=== PATIENT | male | born 1945 | race Caucasian/White ===

== ENCOUNTER 2025-02-04 11:48 | Inpatient (IN) | payer MEDICARE, OTHER, SELFPAY ==
[2025-02-04] VITALS (10 sets, daily range): BP systolic 106–146; BP diastolic 66–95
--- NOTE | 2025-02-04 13:40 | HPS.HSE ---
Addendum entered and electronically signed by Hugo Bliss MD 02/05/25 12:52:
Correction -no prior history of peripheral arterial bypass.
Original Note:
Family Physician
-
Family Physician: Ovidio Talbert
Chief Complaint
-
Chest pain
History of Present Illness
79-year-old male extensive past medical history who is presenting as transfer from [facility]. Patient presented to [facility] with complaint of chest pain. Stated was left-sided substernal. Resolves with rest. Chest pain was
worse with exertion. Chest pain radiated to his jaw and left arm. Pain lasted for approximately 30 to 60 minutes. States of significant pain in the past which patient did not seek attention. Patient proBNP was found to be elevated at [facility].
Patient had a stress test done at [facility] which showed inferior wall ischemia with decreased ejection fraction. Echo with moderate aortic stenosis, EF of 40 to 45%, mild diffuse hypokinesis mild mitral regurgitation. Underwent cardiac
catheterization which showed significant ostial right coronary artery stenosis and mildly decreased systolic left ventricular function and moderate aortic stenosis. Postcardiac catheterization plan was to transfer to patient with tertiary care.
Medical History
Past Medical History
Past Medical History: Reports Other
Additional Past Medical History:
Non-Hodgkin lymphoma
COPD
Tobacco abuse
Coronary artery disease
Paroxysmal atrial fibrillation
Chronic anticoagulation with Coumadin
Peripheral vascular disease
Severe anxiety
Hypercoagulable state
CKD baseline from 1.14-1.27
Aortic stenosis
Cardiomyopathy
Hyperlipidemia
Primary hypertension
Past Surgical History: Reports Other
Additional Past Surgical History:
Status post peripheral artery bypass
History of orthopedic surgery
History of splenectomy
History of excision of dermoid cyst
Social History
Tobacco: Smoker (Smoking for prolonged period of time)
Alcohol: None
Personal:
Living: With Family
Family History
Family History: Not pertinent
Allergies / Home Medications
Allergies reflects when Allergies were last updated in My[employer].
Home Medications with original date entered in My[employer]
Allergy/Medication List:
Allergies
Allergy/AdvReac Type Severity Reaction Status Date / Time
erythromycin base Allergy Mild upset Verified 02/04/25 13:14
stomach
iodine Allergy Unknown Unknown Verified 02/04/25 13:14
moxifloxacin Allergy Unknown Unknown Verified 02/04/25 13:14
shellfish derived Allergy Unknown Unknown Verified 02/04/25 13:14
Fish Containing Products Allergy nausea and Verified 02/04/25 13:14
vomiting
Home Medications
albuterol sulfate 90 mcg/actuation aerosol inhaler (Ventolin HFA) 2 puff inhalation QID 02/04/25
famotidine 20 mg tablet 20 mg PO DAILY 02/04/25
lorazepam 1 mg tablet 1 mg PO TID PRN anxiety 02/04/25
lubiprostone 8 mcg capsule 8 mcg PO BID 02/04/25
nitroglycerin 0.4 mg sublingual tablet (Nitrostat) 0.4 mg sublingual Q5M PRN cp 02/04/25
warfarin 5 mg tablet 5 mg PO DAILY 02/04/25
Review of Systems
-
History Source: Patient and Family
A 12 point ROS was completed and negative except as noted: Yes
Physical Exam
Vital Signs
Vital Signs
Temp Pulse Resp BP Pulse Ox
98.7 F 67 20 146/85 98
02/04/25 12:02 02/04/25 12:15 02/04/25 12:02 02/04/25 12:03 02/04/25 12:02
Physical Exam
General: No Apparent Distress and Appears Chronically Ill
HEENT: NormoCephalic, Moist mucous membranes and Atraumatic
Respiratory: Clear
Cardiac: S1/S2, Regular Rhythm and Murmur; No Rub
GI: Soft, Non Tender, Non Distended and Normal Bowel Sounds; No Organomegaly
Rectal: Deferred by Provider
Musculoskeletal: No Clubbing, No Cyanosis and No Edema
Skin: No Rash
Neuro: Awake, Alert, Oriented, AO x 3, No Motor Deficits and Nonfocal/grossly intact
Psych: Calm
Data Reviewed
-
Old Records: Requested and Reviewed
Impression/Plan
-
#Unstable angina
#CAD
Status post cardiac catheterization at [facility] with significant ostial right coronary artery stenosis
Currently chest pain-free
Check creatinine as with history of CKD and status post cardiac cath
If with chest pain trial of nitroglycerin and morphine if needed
Patient does not seem to be on beta-danielito
N.p.o. till cardiology evaluation for catheterization
Cardiology consulted
#Chronic HFrEF with valvular disease
Patient seems not to be on diuretics at home
Not on NOEMI inhibitor likely secondary to CKD
Not on goal-directed medical therapy
Postcardiac catheterization consider starting GDMT
#CKD
Cr baseline from 1.14-1.27
Labs pending
#Atrial fibrillation likely paroxysmal
#Chronic coagulopathy with Coumadin
Not on AV ermelinda danielito
Monitor on telemetry
INR subtherapeutic
Consider increased dose of Coumadin postcardiac catheterization versus heparin drip
#Severe anxiety
Continue with Ativan
#Hyperlipidemia
Check lipid panel in the morning
#Chronic constipation
Continue with lubiprostone
#COPD
#Tobacco abuse
Refused nicotine patch
Continue with bronchodilators
No active wheezing
Check a chest x-ray
#Non-Hodgkin lymphoma
DVT prophylaxis SCDs
Full code
Discussed with spouse at bedside in detail
I spent a total of 85 minutes with the patient or on the floor. More than 50% of this time involved counseling and coordination of care.
[2025-02-04 13:54] LABS: INR 1.06; PT 14.1 Sec (11.4-14.6)
[2025-02-04 14:18] LABS: ALT (SGPT) 28 U/L (0-50); AST (SGOT) 33 U/L (17-59); Albumin 4.3 g/dl (3.5-5.0); Alkaline Phosphatase 111 U/L (38-126); Blood Urea Nitrogen 44 mg/dl (9-20); Calcium 10.1 mg/dl (8.4-10.2); Carbon Dioxide 30 mmol/L (22-30); Chloride 105 mmol/L (98-107); Glucose 93 mg/dl (70-99); Magnesium 2.4 mg/dl (1.6-2.3); Sodium 140 mmol/L (135-145); Total Protein 6.5 g/dl (6.3-8.2); eGFR 51.13
[2025-02-04 14:31] LABS: Hematocrit 43.9 % (39.0-52.0); Mean Corp Hgb Conc. 34.2 g/dL (33.0-37.0); Mean Corpuscular Hgb 31.9 pg (27.0-31.0); Mean Corpuscular Volume 93.4 fL (80.0-94.0); Mean Platelet Volume 11.5 fL (7.4-10.4); Platelet Count 223 10^3/uL (130-400); Red Cell Dist. Width 15.5 % (11.5-14.5); White Blood Cell Count 10.5 10^3/uL (4.8-10.8)
--- NOTE | 2025-02-04 14:50 | PTCARENOTE ---
Rec'd pt from [facility]. Tele- afib. HR 60s. Pt has no complaints of CP/discomfort/sob at this time. Oriented pt to room. Plan of care reviewed w/ pt and verbalizes understanding. Pt aware that he is NPO for cath today. Currently in bed; call jose w/in
reach.
[2025-02-04 15:14] LABS: % Basophils 0.1 % (0-2); % Eosinophils 0.2 % (0-6); % Immature Granulocytes 0.3 % (0-0.5); % Lymphocytes 17.6 % (20.5-51.1); % Monocytes 7.2 % (1.7-9.3); % Neutrophils 74.6 % (42.2-75.2); Absolute Lymphocytes 1.9 10^3/uL (1.2-3.4); Absolute Monocytes 0.8 10^3/uL (0.1-0.6); Absolute Neutrophils 7.8 10^3/uL (1.4-6.5); Nucleated Red Blood Cells % 0 % (-)
[2025-02-04] MEDS: ProAIR HFA INHALER INH (15:25)
--- NOTE | 2025-02-04 15:31 | CON.CAR ---
Consultation
Consultation Request
Date/Time Consultation Requested: 02/04/2025; 13:36
Date/Time Consultation Performed: 02/04/2025; 15:30
Requesting Provider: Hugo Bliss M.D.
Performing Provider: Obed Yeung D.O.
Reason for Consultation: CAD and unstable angina, transfer for staged PCI.
Medical History
-
Chief Complaint: Transfer from [facility] for atherectomy/PCI of ostial RCA.
History of Present Illness:
79 y/o male with extensive past medical history that is most notable for non-Hodgkin's lymphoma, tobacco abuse with COPD, PAF on warfarin, PAD, HTN, HLD and CKD admitted to [facility] with unstable angina. Pharmacologic stress test at [facility] was notable for
inferior ischemia. Echo showed new cardiomyopathy, LVEF 40-45% with moderate aortic valve stenosis. The patient underwent cardiac catheterization which demonstrated critical, densely calcified ostial RCA stenosis. IVUS was attempted but would not
pass into the vessel. It was clear that the patient would need plaque modification as part of his treatment. The patient was transferred to [facility] for staged PCI with either coronary lithotripsy or orbital atherectomy. The patient is currently
chest pain free.
Past Medical History
Past Medical History: Arrhythmias (Paroxysmal atrial fibrillation on warfarin.), CAD, Cancer (Non-Hodgkin's Lymphoma), CHF (LVEF 40-45%.), COPD, HTN, Hypercholesterolemia, Renal Failure (Baseline creatinine 1.1-1.3.) and Other (Peripheral arterial
disease )
Social History
Tobacco: Smoker
Alcohol: None
Drug: None
Personal:
Living: With Family
Employment: Retired
Family History
Family History: Reviewed & Not Pertinent
Allergies / Home Medications
Allergy/AdvReac Type Severity Reaction Status Date / Time
erythromycin base Allergy Mild upset Verified 02/04/25 13:14
stomach
iodine Allergy Unknown Unknown Verified 02/04/25 13:14
moxifloxacin Allergy Unknown Unknown Verified 02/04/25 13:14
shellfish derived Allergy Unknown Unknown Verified 02/04/25 13:14
Fish Containing Products Allergy nausea and Verified 02/04/25 13:14
vomiting
�Medication �Instructions �Recorded �Confirmed �Type
albuterol sulfate 90 mcg/actuation 2 puff inhalation QID 02/04/25 02/04/25 History
aerosol inhaler (Ventolin HFA)
famotidine 20 mg tablet 20 mg PO DAILY 02/04/25 02/04/25 History
lorazepam 1 mg tablet 1 mg PO TID PRN anxiety 02/04/25 02/04/25 History
lubiprostone 8 mcg capsule 8 mcg PO BID 02/04/25 02/04/25 History
nitroglycerin 0.4 mg sublingual 0.4 mg sublingual Q5M PRN cp 02/04/25 02/04/25 History
tablet (Nitrostat)
warfarin 5 mg tablet 5 mg PO DAILY 02/04/25 02/04/25 History
Review of Systems
-
History Source: Patient and Family
All other systems: Negative unless noted
Constitutional: No Symptoms
EENT: No Symptoms
Respiratory: No Symptoms
Cardiac: Chest Pain
Abdomen/GI: No Symptoms
: No Symptoms
Musculoskeletal: No Symptoms
Skin: No Symptoms
Physical Exam
Vital Signs
Temp Pulse Resp BP Pulse Ox
37.1 C 67 20 146/85 98
02/04/25 12:02 02/04/25 12:15 02/04/25 12:02 02/04/25 12:03 02/04/25 12:02
Lab Results
02/04/25 13:35
02/04/25 13:35
Physical Exam
General: Well Developed, No Apparent Distress and Poor Appetite
HEENT: Normocephalic, Anicteric and Moist Mucous Membranes
Respiratory: Clear and Non Labored Respirations
Cardiac: S1/S2 and Regular Rhythm
Breast: Deferred by me
GI: Soft, Non Tender, Non Distended and Normal Bowel Sounds
Rectal: Deferred by Provider
Musculoskeletal: No Clubbing, No Cyanosis and No Edema
Skin: Warm
Neuro: AO x 3
Hematologic/Lymphatic: No Lymphadenopathy
Impression / Plan
-
Impression/Plan: 79 y/o male with extensive past medical history admitted to [facility] with unstable angina, found to have critical, densely calcified ostial RCA disease, transferred for plaque modification with CTS backup.
#CAD/Unstable angina
-Acute.
-Films reviewed. Plan for coronary lithotripsy vs. CSI and PCI of the ostial RCA.
-CT surgery informed.
-Plan for anti-thrombotic therapy will be clopidogrel + warfarin.
#Moderate
-Chronic, stable.
#Ischemic cardiomyopathy
-New diagnosis.
-Monitor response to PCI.
-GDMT if the patient is agreeable.
#HLD
-Chronic.
-Check fasting lipid profile.
-He will need high dose, high potency statin.
-Goal LDL < 55.
#Tobacco abuse
-Chronic, long standing.
-Cessation strongly recommended.
Data Reviewed
-
EKG: Tracing Personally Visualized and interpreted and Report Reviewed by me
Medical Tests (Nuc Med, Echo etc): Image Personally Visualized and interpreted, Report Reviewed by me and Discussed with Physician
Labs: Labs Reviewed by me and Discussed with Physician
[2025-02-04 15:59] LABS: NT-proBNP 5680 pg/ml
[2025-02-04 16:54] LABS: ACT-LR - POC 306 Seconds (116-155)
--- NOTE | 2025-02-04 17:15 | ITS.CL.ANGIO ---
[employer] - Angioplasty
Angioplasty
Procedure Report:
CARDIAC CATHETERIZATION REPORT
Date of Procedure: 02/04/2025
Referring: Trevon Worley M.D.
INDICATION: Staged PCI for unstable angina, densely calcified ostial RCA lesion requiring surgical backup.
PROCEDURE:
1. Placement of a temporary pacemaker.
2. Right sided coronary angiography.
3. CSI orbital atherectomy of the ostial/proximal RCA.
4. Successful PCI of the ostial/proximal RCA
A total of 76 minutes of procedural/moderate sedation was utilized. An independent biomedical equipment tech was present to assist with and help manage the patient's level of consciousness and physiologic status.
ACCESS:
1. 6 [place] left common femoral artery using a modified Seldinger technique with a micropuncture kit under ultrasound guidance.
2. 6 [place] left common femoral vein using a modified Seldinger technique with a micropuncture kit under ultrasound guidance.
CATHETERS:
1. 6 [place] AR-1 guiding catheter.
2. 6 [place] AL-1 guiding catheter.
3. 6 [place] transvenous pacemaker.
HEMODYNAMIC DATA
Weight (kg): 63.5
AO (s/d/x, mmHg): 142/62/90
LV (s/x mmHg): Not obtained.
LEFT VENTRICULOGRAPHY: Not performed.
CORONARY ANGIOGRAPHY
Dominance: Right.
Left Main: Not injected. Known to be a normal size, trifurcating vessel without coronary artery disease.
LAD: Not injected. Known to be a normal size vessel with luminal irregularities.
Ramus: Not injected. Known to be a medium size vessel supplying a significant portion of the anterolateral wall. There is no coronary artery disease.
Circumflex: Not injected. Known to be a normal size, nondominant vessel with a single obtuse marginal. There is no coronary artery disease.
RCA: Normal size, dominant vessel. There is a densely calcified, 90% lesion in the ostium of the vessel which extends into the proximal vessel.
INTERVENTION(S)
1. Successful placement of a temporary transvenous pacemaker in the right ventricle.
2. Successful CSI orbital atherectomy of the 90% ostial RCA lesion.
3. Successful PCI of the 90% ostial/proximal RCA lesion (Medtronic Avtar [place] 3.0 x 30 ROBE, postdilated with a 3.0 NC balloon) with reduction in stenosis to 0%, maintaining MONTSE-3 flow.
Narrative:
After access was obtained in the left common femoral artery and vein, a 6 [place] temporary pacemaker was advanced into the right ventricle. Thresholds were tested and the pacemaker was set to backup of 60 bpm at 20 mA of output. A 6 [place] AR-1
guiding catheter was advanced into the ascending aorta and seated in the right coronary cusp. Unfortunately, the AR-1 catheter did not have enough reach to engage the ostium of the right coronary artery without prolapsing into the left ventricle.
This catheter was withdrawn and a 6 [place] AL 1 guiding catheter was advanced and seated in the right coronary cusp. This catheter did have enough length to engage the right coronary artery. After appropriate engagement, a power turn Flex wire was
advanced through a quick cross microcatheter into the distal RCA. The quick cross was then advanced into the distal RCA and the power turn Flex wire was withdrawn. The Viper wire was advanced into the distal right coronary artery through the quick
cross microcatheter, which was subsequently removed.
The CSI orbital atherectomy device was prepped on the back table and flushed with Viper slide. The device was loaded onto the Viper wire and brought up to the level of the catheter. An out of body test was successful. The CSI device was advanced
over the Viper wire up to the level of the coronary artery. Once the crown was positioned in place, orbital atherectomy was performed in the standard fashion with slow smooth passes. Brief angiography was performed to rule out dissection and
perforation. The process was performed four times. The CSI device was withdrawn over the Viper wire.
The quick cross microcatheter was readvanced over the Viper wire which was then withdrawn. The power turn Flex wire was then readvanced into the distal RCA and the quick cross microcatheter was removed using a wire pinning technique.
The ostial/proximal RCA lesion was predilated with a 2.0 x 12 semi-compliant balloon to 12 roxana. The semicompliant balloon was withdrawn and a 2.5 x 15 noncompliant balloon was advanced. The ostial/proximal RCA was predilated to 14 roxana with good
balloon expansion throughout. The noncompliant balloon was removed. A BMW wire was advanced through the guide and seated in the right coronary cusp as a bumper wire to avoid full engagement of the right coronary ostium. A Medtronic Golva O[place]
3.0 x 30 drug-eluting stent was advanced. Meticulous care was taken while positioning the stent, ensuring that the entire lesion was covered by the stent including the ostium of the vessel with approximately 1 stent cell protruding into the aorta.
When we were satisfied with our position, the stent was deployed at 12 atmospheres. The stent balloon was removed. A 3.0 x 15 noncompliant balloon was advanced into the stent and the stent was postdilated to 14 atmospheres in the distal and mid
stent, and 16 roxana in the ostium of the stent into the aorta. The noncompliant balloon was removed and the guide catheter was able to sit much more comfortably in the ostium of the right coronary artery.
Angiography was performed in orthogonal views, confirming good stent expansion and an excellent angiographic result. The coronary wire was withdrawn and the guide was disengaged from the artery. The catheter was removed over a standard J-wire.
Closure Device: 6 [place] Angio-Seal in the left common femoral artery, failed on deployment; manual pressure for both the artery and vein.
Radiation (mGy): 219.78
DAP (cm2.Gy): 15.1140
Fluoroscopy time (minutes): 18.0
CONCLUSIONS
1. Right dominant circulation with a densely calcified, 90% lesion in the ostium of the RCA extending into the proximal vessel, status post successful CSI orbital atherectomy and PCI (Medtronic Avtar [place] 3.0 x 30 ROBE, postdilated with a 3.0 NC
balloon throughout) with reduction in stenosis to 0%, maintaining MONTSE-3 flow.
RECOMMENDATIONS:
1. Expectant management after cardiac catheterization via left common femoral approach.
2. Limited weight bearing for one week.
3. Antithrombotic therapy with aspirin and clopidogrel. Restart warfarin and maintain triple therapy until INR is therapeutic, at which time we will stop aspirin. Maintain clopidogrel for 12 months minimum.
4. OMT/GDMT as hemodynamics will tolerate.
5. Aggressive secondary prevention with high-dose, high potency statin. LDL goal <55.
6. Referral to cardiac rehab.
Copy to: Trevon Worley M.D., Ovidio Talbert M.D.
Obed Yeung DO, FACC, FACP
--- NOTE | 2025-02-04 18:16 | PTCARENOTE ---
Rec'd pt from dental laboratory technician. Pt c/o L foot cramping and coolness in extremity. Pt w/ absent L dorsalis pedis pulse. Dr. Yeung made aware.
--- NOTE | 2025-02-04 18:24 | PTCARENOTE ---
Rec'd pt from clinical laboratory aide. Pt c/o L foot cramping and coolness in extremity. Pt w/ absent L dorsalis pedis pulse. Dr. Yeung made aware and at bedside.
[2025-02-04] MEDS: LIPITOR 40 MG PO (18:25)
[2025-02-04] MEDS: COUMADIN 5 MG PO (21:12)
[2025-02-04] MEDS: ProAIR HFA INHALER 2 PUFF INH (21:13)
--- NOTE | 2025-02-04 23:22 | PTCARENOTE ---
Received pt @ change of shift. AAOx3. VSS-- A-Fib on monitor. Post cath NSS running. Right groin site from [facility]. Left femoral site clean, dry, and intact. No swelling, ecchymosis, or hematoma present @ this time. Denies L foot cramping.
Extremity still cool w/ absent L dorsalis pedis doppler pulse. Positive posterior tibial pulse with doppler. Bedrest complete @ 2119. Discussed plan of care for evening. Pt verbalizes understanding. Call garcia within reach.
[2025-02-05] VITALS (19 sets, daily range): BP systolic 86–161; BP diastolic 63–107; BMI 17.5
--- NOTE | 2025-02-05 04:01 | ECGCV ---
NOHELIA Desouza PA notified of ECG critical value identified by electronic interpretation on ECG completed on 02/05/25, at 0319.
--- NOTE | 2025-02-05 04:03 | PTCARENOTE ---
EKG critical value of a STEMI. Pt denies chest pain/discomfort. EKG ran again-- no STEMI second time. Informed NOHELIA Desouza PA and discussed-- does not feel first EKG of a STEMI was correct.
[2025-02-05 04:10] LABS: % Basophils 0.4 % (0-2); % Eosinophils 1.5 % (0-6); % Immature Granulocytes 0.5 % (0-0.5); % Lymphocytes 17.8 % (20.5-51.1); % Monocytes 8.8 % (1.7-9.3); Absolute Eosinophils 0.1 10^3/uL (0-0.7); Absolute Lymphocytes 1.5 10^3/uL (1.2-3.4); Absolute Monocytes 0.7 10^3/uL (0.1-0.6); Absolute Neutrophils 5.9 10^3/uL (1.4-6.5); Hematocrit 40.4 % (39.0-52.0); Hemoglobin 13.9 g/dL (13.0-18.0); Mean Corp Hgb Conc. 34.4 g/dL (33.0-37.0); Mean Corpuscular Hgb 31.8 pg (27.0-31.0); Mean Corpuscular Volume 92.4 fL (80.0-94.0); Mean Platelet Volume 11.7 fL (7.4-10.4); Nucleated Red Blood Cells % 0 % (-); Platelet Count 200 10^3/uL (130-400); Red Blood Cell Count 4.37 10^6/uL (4.70-6.10); Red Cell Dist. Width 15.5 % (11.5-14.5); White Blood Cell Count 8.2 10^3/uL (4.8-10.8)
[2025-02-05 04:20] LABS: PT 14.5 Sec (11.4-14.6)
[2025-02-05 04:36] LABS: Blood Urea Nitrogen 38 mg/dl (9-20); Calcium 9.2 mg/dl (8.4-10.2); Carbon Dioxide 23 mmol/L (22-30); Chloride 110 mmol/L (98-107); Glucose 80 mg/dl (70-99); HDL Cholesterol 45 mg/dl; LDL Cholesterol, Calculated 63 mg/dl; Potassium 3.9 mmol/L (3.5-5.1); Sodium 140 mmol/L (135-145); Total Cholesterol 123 mg/dl (50-199); Triglyceride 79 mg/dl (10-149); Very Low Density Lipoprotein 15 mg/dl (0-30); eGFR > 60.00
--- NOTE | 2025-02-05 06:57 | W.PN.CD ---
Today's Communication / Plan
-
Left arterial US.
Start metoprolol 12.5 mg daily.
Triple therapy until INR > 2, then discontinue ASA.
Continue atorvastatin 40 mg daily.
Discharge planning.
Impression / Plan
-
Impression/Plan: 79 y/o male with extensive past medical history admitted to [facility] with unstable angina, found to have critical, densely calcified ostial RCA disease, transferred for plaque modification with CTS backup.
#CAD/Unstable angina
-Acute.
-S/P successful CSI (orbital atherectomy x 4) and PCI of the ostial/proximal RCA (Medtronic Monclova [place] 3.0 x 30 ROBE, post dilated with a 3.0 NCB), 02/04/2025.
-Antithrombotic therapy with ASA/clopidogrel/warfarin until INR > 2, then d/c ASA.
-Left femoral closure with 6Fr Angioseal failed, followed by mild LE symptoms (known PAD, though none on angiography of the BIOSTATISTICS DIRECTOR at the time of cath). Nursing documents Dopplerable left PT pulse (DP never available).
-Check left femoral arterial US.
-Low threshold for vascular surgery involvement.
#Moderate
-Chronic, stable.
#Ischemic cardiomyopathy
-New diagnosis.
-Monitor response to PCI.
-Start metoprolol succinate 12.5 mg daily.
#PAD
-Chronic.
-Left AT pulse absent prior to procedure.
#HLD
-Chronic.
-Total cholesterol = 123, LDL = 63, HDL = 45, Triglycerides = 79.
-Goal LDL < 55.
-Started on atorvastatin 40 mg daily.
#Tobacco abuse
-Chronic, long standing.
-Cessation strongly recommended.
Subjective/Interval History:
CSI + PCI of the ostial RCA yesterday.
Left femoral angioseal failed yesterday. Manual pressure held.
Left foot cramping reported. Pulse present in the left groin. Nursing reports left PT present by Doppler. Cramping resolved.
DATA:
Cardiac Catheterization/PCI, 02/04/2025:
CONCLUSIONS
1. Right dominant circulation with a densely calcified, 90% lesion in the ostium of the RCA extending into the proximal vessel, status post successful CSI orbital atherectomy and PCI (Medtronic Avtar [place] 3.0 x 30 ROBE, postdilated with a 3.0 NC
balloon throughout) with reduction in stenosis to 0%, maintaining MONTSE-3 flow.
Physical Exam
Vital Signs/Labs
Vital Signs
Temp Pulse Resp BP Pulse Ox
36.4 C 64 18 117/64 98
02/05/25 03:26 02/05/25 03:45 02/05/25 03:26 02/05/25 03:26 02/05/25 03:26
02/05/25 03:38
02/05/25 03:38
PT 14.5 Sec (11.4-14.6) 02/05/25 03:38
INR 1.10 02/05/25 03:38
APTT 25.0 Sec (23.4-35.0) 02/04/25 13:35
Magnesium 2.4 mg/dl (1.6-2.3) H 02/04/25 13:35
Triglycerides 79 mg/dl (10-149) 02/05/25 03:38
LDL Cholesterol, Calc 63 mg/dl 02/05/25 03:38
VLDL Cholesterol, Calc 15 mg/dl (0-30) 02/05/25 03:38
HDL Cholesterol 45 mg/dl 02/05/25 03:38
02/04/25
13:35
[id number] Pept [id number]
Physical Exam
Constitutional: No acute distress and Comfortable
EENT: Anicteric and Moist mucous membranes
Cardiovascular: Pedal edema is absent, JVD pressure is normal, Rhythm/rate is irregular, Systolic murmur present and S1S2 is normal
Respiratory: Respiratory effort normal, Lungs clear to auscul., Wheeze Absent, Crackles Absent and Rhonchi Absent
GI: Soft, Distention absent, Flat, Non tender and Normal bowel sounds
Neuro/Psych: AO x 3
Other: Cath Site (Left femoral access site is C/D/I. Pulse diminished below left femoral access site.)
Data Reviewed
-
Date of Service: February 05, 2025
Medical Decision Making: Reviewed Test Results, Tests Ordered, Independent Historian Assessment, Test Interpretation and Review of Case with other Provider
EKG: Tracing Personally Visualized and interpreted and Report Reviewed by me
Echo: Report Reviewed by me
Medical Tests (PFT, Pathology etc): Image Personally Visualized and interpreted, Report Reviewed by me, Discussed with Physician, Discussed with Patient and Discussed with Family
Labs: Labs Reviewed by me
Old Records: Reviewed
--- NOTE | 2025-02-05 07:38 | PTCARENOTE ---
Addendum entered by Jose Tirado RN 02/05/25 09:02:
Assumed care. Patient confused to place, 'I don't know where I am' , re-orients easily. He looks to his for guidance. He is very HOPI. AO x2-3, can be agitated. He is unable to tell the month correctly or time of day. He does not recall having
chest pain. Telling me he wants to go home and this hospital food is terrible. Walking into the bathroom developed left foot pain; assisted to his bed, left foot elevated on pillow and pain is subsiding. Left foot dusky and cool. Dorsal pedal pulse
absent on left with a faint posterior tibial pulse with Doppler. Right pulses verified with Doppler. Left groin site CDI,tender to touch. Right cath site healing soft ROBERTO. at bedside and very attentive to his needs
Original Note:
Assumed care. Patient confused to place, 'I don't know where I am' , re-orients easily. He looks to his for guidance. He is very HOPI. AO x2-3, can be agitated. He is unable to the month correctly and time of day. He does not recall having chest
pain. Telling me he wants to go home and this hospital food is terrible. Walking into the bathroom developed left foot pain; assisted to his bed, left foot elevated on pillow and pain is subsiding. Left foot dusky and cool. Dorsal pedal pulse absent
on left with a faint posterior tibial pulse with Doppler. Right pulses verified with Doppler. Left groin site CDI,tender to touch. Right cath site healing soft ROBERTO. at bedside and very attentive to his needs
[2025-02-05] MEDS: ProAIR HFA INHALER INH ×2 (07:42→16:14)
[2025-02-05] MEDS: LOW STRENGTH ASPIRIN 81 MG PO (08:58)
[2025-02-05] MEDS: PLAVIX 75 MG PO (08:58)
[2025-02-05] MEDS: PEPCID 20 MG PO (08:58)
[2025-02-05] MEDS: TOPROL XL 12.5 MG PO (08:58)
--- NOTE | 2025-02-05 10:59 | CON.VAS ---
Addendum entered and electronically signed by Adria Mccallum MD 02/05/25 14:14:
Seen and examined with FRACISCO Rocha. Agree with findings/plan. Extensive history as noted below. Cardiac cath yesterday with angio seal closure.
L foot pain prompted duplex.
Patient notes pain slightly improved now.
L foot cool, slightly mottled. Cap refill slowed, but present.
Duplex - occlusive likely angioseal plug/foot plate.
Plan/ Urgent OR for repair/thrombectomy. Discussed with patient and his plan. Discussed risks including but not limited to bleeding/infection, worsened limb ischemia. Discussed risk limb loss without intervention. He understands all and
wishes to proceed. However, he did receive sedative Benadryl. Therefore all discussed with his as well who was at bedside - and she understands all and wishes to proceed. Informed consent obtained from .
Original Note:
Consultation
Consultation Request
Date/Time Consultation Performed: 02/05/25 10:30
Performing Provider: Katiuska
Reason for Consultation: Angioseal failure
Medical History
-
Chief Complaint: left foot/calf cramping- resovled
History of Present Illness:
79 yo male transferred here yesterday from [facility] for chest pain with plan for RCA stenting. PMH significant for non-Hodgkin lymphoma, COPD, active smoker, Coronary artery disease, Paroxysmal atrial fibrillation, Chronic anticoagulation
with Coumadin, Peripheral vascular disease, Severe anxiety, Hypercoagulable state, CKD baseline from 1.14-1.27, Aortic stenosis, Cardiomyopathy, Hyperlipidemia, Primary hypertension, very hard of hearing. Last evening pt had CSI orbital atherectomy
of the ostial/proximal RCA, PCI of the ostial/proximal RCA, angioseal closure of groin sites by Dr Yeung. Overnight pt experienced left calf/foot cramping, slight temperature difference.
This AM left groin US shows: No evidence of pseudoaneurysm in the left groin status post cardiac catheter/Angio-Seal failure. On grayscale imaging there is evidence of intraluminal opacity that at least partially obstructs flow in the common femoral
artery. The flow distal to this site is monophasic.
Vascular consult for above findings. Pt seen at bedside this am with at bedside. Pt states cramping has resolved as well as pain to the left foot. Foot remains cooler then right. I am unable to detect pulses or signals to the left foot. Left
femoral pulse faint. R femoral pulse +2.
INR 1.1 today.
Past Medical History
Past Medical History: Other (Non-Hodgkin lymphoma, COPD, Tobacco abuse, Coronary artery disease, Paroxysmal atrial fibrillation, Chronic anticoagulation with Coumadin, Peripheral vascular disease, Severe anxiety, Hypercoagulable state, CKD baseline
from 1.14-1.27, Aortic stenosis, Cardiomyopathy, Hyperlipidemia, Primary hyperte)
Past Surgical History: Orthopedic (total knee R) and Other (splenectomy, excision of dermoid cyst)
Social History
Tobacco: Smoker
Personal:
Living: With Family
Family History
Family History: Reviewed & Not Pertinent
Allergies / Home Medications
Allergy/AdvReac Type Severity Reaction Status Date / Time
erythromycin base Allergy Mild upset Verified 02/04/25 13:14
stomach
iodine Allergy Unknown Unknown Verified 02/04/25 13:14
moxifloxacin Allergy Unknown Unknown Verified 02/04/25 13:14
shellfish derived Allergy Unknown Unknown Verified 02/04/25 13:14
Fish Containing Products Allergy nausea and Verified 02/04/25 13:14
vomiting
�Medication �Instructions �Recorded �Confirmed �Type
albuterol sulfate 90 mcg/actuation 2 puff inhalation QID 02/04/25 02/04/25 History
aerosol inhaler (Ventolin HFA)
famotidine 20 mg tablet 20 mg PO DAILY 02/04/25 02/04/25 History
lorazepam 1 mg tablet 1 mg PO TID PRN anxiety 02/04/25 02/04/25 History
lubiprostone 8 mcg capsule 8 mcg PO BID 02/04/25 02/04/25 History
nitroglycerin 0.4 mg sublingual 0.4 mg sublingual Q5M PRN cp 02/04/25 02/04/25 History
tablet (Nitrostat)
warfarin 5 mg tablet 5 mg PO DAILY 02/04/25 02/04/25 History
Review of Systems
-
History Source: Patient and Family
All other systems: Negative unless noted
Constitutional: Reports No Symptoms
EENT: Reports No Symptoms
Respiratory: Reports No Symptoms
Cardiac: Reports Chest Pain
Vascular: Reports Leg Pain / Claudication
Abdomen/GI: Reports No Symptoms
: Reports No Symptoms
Musculoskeletal: Reports No Symptoms
Skin: Reports No Symptoms
Neurological: Reports No Symptoms
Physical Exam
Vital Signs
Temp Pulse Resp BP Pulse Ox
97.5 F 81 16 149/84 96
02/05/25 08:00 02/05/25 09:45 02/05/25 08:00 02/05/25 07:32 02/05/25 08:00
Lab Results
02/05/25 03:38
02/05/25 03:38
Baw-X-Dlfhakmhcyh Pept 5680 pg/ml 02/04/25 13:35
Physical Exam
General: No Apparent Distress
HEENT: Normocephalic and Atraumatic
Respiratory: Non Labored Respirations
Cardiac: Negative JVD
GI: Soft, Non Tender and Non Distended
Musculoskeletal: Edema
Skin: Other (Right foot warm, left slightly cool)
Neuro: Awake, Alert and Oriented
Psych: Agitated
Pulses: Left Femoral: +1 (faint), Right Femoral: +2, Left Dorsalis Pedis: Doppler (none), Right Dorsalis Pedis: +1, Left Posterior Tibial: Doppler (none) and Right Posterior Tibial: +1
Assessment / Plan
-
79 yo male s/p cardiac cath with RCA intervention and failed left groin angioseal
Groin US with monophasic flow in the SFA
Plan:
-NPO
-CTA runoff now
-Will discuss with Attending and follow up with pt shortly for next steps
Data Reviewed
-
Ultrasound: Discussed with Patient
Labs: Labs Reviewed by me
[2025-02-05] MEDS: ProAIR HFA INHALER 2 PUFF INH ×2 (11:04→20:26)
[2025-02-05] MEDS: ATIVAN 1 MG PO (11:20)
[2025-02-05] MEDS: BENADRYL 50 MG IV (12:25)
[2025-02-05] MEDS: SOLU-CORTEF 200 MG IV (12:25)
--- NOTE | 2025-02-05 12:34 | PTCARENOTE ---
IV Benadryl and IV steroid given, pre-medicated Iodine allergy
--- NOTE | 2025-02-05 12:50 | W.PN.HOSP.TC ---
Today's Communication/Plan
-
CT angiogram runoff pending
Possible OR later today
Continue with aspirin, Plavix and Coumadin-May need to hold will defer to vascular surgery
Remains n.p.o.
Assessment / Plan
Assessment / Plan
General: No Apparent Distress and Appears Chronically Ill, heard of hearing
HEENT: NormoCephalic, Moist mucous membranes and Atraumatic
Respiratory: Clear
Cardiac: S1/S2, Regular Rhythm and Murmur; No Rub
GI: Soft, Non Tender, Non Distended and Normal Bowel Sounds; No Organomegaly
Rectal: Deferred by Provider
Musculoskeletal: No Clubbing, No Cyanosis and No Edema
Skin: No Rash
Neuro: Awake, Alert, Oriented, AO x 3, No Motor Deficits and Nonfocal/grossly intact
Psych: anxious
#Unstable angina
#CAD
Status post cardiac catheterization at [facility] with significant ostial right coronary artery stenosis
Currently chest pain-free
Status post cardiac catheterization with successful atherectomy and PCI of the RCA status post ROBE
Per cardiology plan for triple therapy until INR greater than 2 then stop aspirin and continue with Plavix and Coumadin
Continue with metoprolol and statin
Cardiology following
# Left lower extremity cramping and pain found to have with diminished pulses
Failure to Angio-Seal on the left groin site
Ultrasound of the groin with showed no evidence of pseudoaneurysm in the left groin status post cardiac catheter. There is evidence of intraluminal opacity that at least partially obstruct flow in the common femoral artery. The flow distal to this
site is not monophasic
Stat CT runoff ordered and pending
Vascular surgery consulted for abnormal finding with plan for possible OR.
#Chronic HFrEF with valvular disease
# Moderate aortic stenosis
Patient seems not to be on diuretics at home
Not on NOEMI inhibitor likely secondary to CKD
Not on goal-directed medical therapy
Postcardiac catheterization consider starting GDMT
#MELISSA on CKD
Cr baseline from 1.14-1.27
Cr at baseline now
#Atrial fibrillation likely paroxysmal
#Chronic coagulopathy with Coumadin
Not on AV ermelinda danielito
Monitor on telemetry
INR subtherapeutic
Continue coumadin. With plan for OR per vascular with defer to surgery and cards
#Severe anxiety
Continue with Ativan
#Hyperlipidemia
Cont w/statin
#Chronic constipation
Continue with lubiprostone
#COPD
#Tobacco abuse daily basis
Refused nicotine patch
Continue with bronchodilators
No active wheezing
cxr negative for infiltrate
Complete cessation recommended
#Non-Hodgkin lymphoma
DVT prophylaxis SCDs/coumadin
Full code
Discussed with spouse at bedside in detail
Anticipated Discharge: > 48 hours
Subjective/Interval History
-
Date of Service: February 05, 2025
Status post cardiac catheterization
Patient with mild agitation, anxiety
Denies any chest pain or leg pain
Objective Data
-
Labs:
Laboratory Results
02/05/25
03:38
WBC 8.2
Hgb 13.9
Hct 40.4
Plt Count 200
PT 14.5
INR 1.10
Sodium 140
Potassium 3.9
Chloride 110 H
Carbon Dioxide 23
BUN 38 H
Creatinine 1.1
Glucose 80
Calcium 9.2
Vital Signs:
Vital Signs
Temp Pulse Resp BP Pulse Ox
98 F 84 20 149/84 97
02/05/25 12:05 02/05/25 11:12 02/05/25 12:05 02/05/25 07:32 02/05/25 12:05
I&O
02/04/25 02/05/25 02/06/25
06:59 06:59 06:59
Output Total 175 / 175
Balance -175 / -175
Data Reviewed
-
Total Time Spent with Patient (in minutes): 55
--- NOTE | 2025-02-05 14:10 | PTCARENOTE ---
Type and screen and ABO collected
[2025-02-05] MEDS: PERIDEX 0.12% ORAL RINSE 15 ML PO (14:16)
[2025-02-05] MEDS: BACTROBAN 2% OINTMENT 1 APPLIC NASAL (14:16)
--- NOTE | 2025-02-05 14:17 | CM ---
Reviewed chart. Met with Mrs. Arita to review discharge plans. Mr. Arita was in his way to the operating room for a vascular procedure. She states prior to admission he resides with his spouse in a rancher style home with two steps to
enter. There is a basement where the laundry room ws located. She states prior to admission he was independent with ambulation and adls. She states he hough not have any DME in the home. She states he has a prescription plan and uses [facility].
She states he has never had [facility] in the past. Will need to see his functional status post surgery to see if he will have any skilled care needs. Medical work-up in progress. The discharge plan is to return home with his spouse when
medically stable.
--- NOTE | 2025-02-05 14:30 | PTCARENOTE ---
Report given. CHG wipes completed. Voided 150 cc of yellow urine in urinal. Report given, patient taken to the OR.
--- NOTE | 2025-02-05 17:13 | W.SUR.POST ---
Surgical Immediate Post Op
Note
Pre Op Diagnosis: acute limb ischemia
Post Op Diagnosis: same
Procedure Performed: Left groin cutdown, femoral endarterectomy with bovine pericardial patch angioplasty
Primary Surgeon: Alessio
Assist: Josefina WALTON
Anesthesia: general
Estimated Blood Loss: 25cc
Fluids: see anesthesia flowsheet
Drains/Shunts: none
Specimens/Cultures: femoral plaque, angioseal
Doppler/Duplex/Angio (Y/N): Y
Complications: none
Operative Findings: Doppler PT signal
[2025-02-05 17:59] LABS: Hematocrit 46.1 % (39.0-52.0); Hemoglobin 15.5 g/dL (13.0-18.0); Mean Corp Hgb Conc. 33.6 g/dL (33.0-37.0); Mean Corpuscular Hgb 31.8 pg (27.0-31.0); Mean Corpuscular Volume 94.7 fL (80.0-94.0); Platelet Count 182 10^3/uL (130-400); Red Blood Cell Count 4.87 10^6/uL (4.70-6.10); Red Cell Dist. Width 15.7 % (11.5-14.5); White Blood Cell Count 10.4 10^3/uL (4.8-10.8)
[2025-02-05 18:04] LABS: INR 1.16; PT 15.1 Sec (11.4-14.6)
[2025-02-05 18:05] LABS: APTT 23.5 Sec (23.4-35.0)
--- NOTE | 2025-02-05 18:24 | OR.RPT ---
Operative Report
Operative Report
PROCEDURE DATE: 02/05/2025
Preoperative diagnosis:
1. Acute limb ischemia left lower extremity.
2. Failed Angio-Seal left common femoral artery at completion of coronary catheterization.
3. Unstable angina status post PCI.
Postoperative diagnosis: Same
Procedure:
1. Urgent left femoral artery cutdown/exploration.
2. Removal of retained Angio-Seal footplate and plug.
3. Extensive left iliofemoral endarterectomy (distal external iliac artery, common femoral artery, proximal superficial femoral artery and origin of profunda femoris artery) with bovine pericardial patch angioplasty.
Surgeon: Alessio
Registered Nursing Professor: FRACISCO Rocha, required for all aspects of procedure including assistance with traction/countertraction, following a suture line, assistance with closure.
Complications: None
Anesthesia: General
Indications for procedure:
Patient underwent coronary catheterization/PCI for unstable angina. At completion of procedure and Angio-Seal attempts, but this failed to deploy properly. Manual pressure applied. Patient noted post procedurally pain in the left foot/left lower
extremity. Duplex demonstrated what appeared to be near occlusive density in the vessel suggestive of possible Angio-Seal plug or intimal injury. Brought urgently for OR. Risk/benefits/alternatives all fully discussed with the patient and his
. They understood all wished to proceed.
Description of procedure:
Patient was identified brought to the operating room placed on the table in supine position. After the adequate administration of anesthesia he was prepped and draped in the standard surgical fashion. A standard preoperative timeout was undertaken
and everybody was in agreement the plan. A longitudinal incision was made in the left groin those carried through skin subcutaneous tissue with electrocautery. Any lymphatic type crossing structures were ligated between silk ties and divided.
Identified the inguinal ligament and then carefully identified the common femoral artery as it emerged from underneath the inguinal ligament. Tissues were somewhat bloodstained making dissection slightly more challenging. Note in the subcutaneous
tissues identified the string from the Angio-Seal and was able to traced that down to the common femoral artery. I could see where it went into the artery and there is no thrombotic plug on top of it. There was not a good pulsation in the common
femoral artery. I now continues to dissect the common femoral artery more distally until I got to the superficial femoral artery. I dissected it for a couple centimeters beyond the origin and it was noted to be softer there. I passed a vessel
loop around it here after circumferential careful dissection. Now I dissected the origin of the profunda very carefully. Circumferential careful dissection was undertaken a vessel loop passed around it which was double looped but not yet
tightened. I now dissected underneath inguinal ligament. The distal external iliac artery was circumferentially dissected and a vessel loop passed around it. The left circumflex iliac artery branch was controlled with a vessel loop as well. At
this point I could palpate a pulsation in the distal external iliac artery. The pulse dissipated at the common femoral artery. At this point I gave the patient 5000's of intravenous heparin. Once this had circulated the superficial femoral and
profundofemoral arteries were clamped. I then placed a Derra clamp on the distal external iliac artery. An arteriotomy was made on the common femoral artery with an 11 blade and extended with a Walter scissor proximally. I noted at the arteriotomy
site there was some plaque and slightly loosened intima. I was able to continue my arteriotomy, following the Angio-Seal string cephalad. I then noted that the Angio-Seal string went in the vicinity of my clamp. (Proximal clamp). Therefore I
quickly dissected cephalad to my clamp, dissecting the right circumflex iliac artery and then dissecting the external iliac artery more proximal to here. I also noted in the vicinity of my clamp that the artery was slightly discolored/bluish
suggesting thrombotic lumen. When I had dissected proximally to here now I noted the soft normal artery. I passed the vessel loop around it. I then moved a clamp up to this level. Now I was able to extend my arteriotomy further cephalad onto the
external iliac artery. And now I could see the end of the Angio-Seal string and the footplate with the plug and adherent thrombus. It appeared that the footplate had caught on posterior plaque here. And that caused the thrombus to push all the
way down to the plug that had stuck on the external iliac artery. Therefore I now removed the plug and the string. This was passed off for specimen. Unfortunately now the posterior intima of the distal external iliac artery had raised up as a
result of this footplate process. I therefore then had to use a [place] to endarterectomized. However that there was thickened intima and plaque throughout the common femoral artery. Therefore I had to extend my arteriotomy onto the superficial
femoral artery, and then actually had to gain more distal control of the superficial femoral artery so as to allow better endpoint. (Therefore moved my clinic more distally after careful circumferential dissection more distally). Now I extended my
arteriotomy well onto the SFA. I now used a [place] to endarterectomized the plaque, I everted the plaque out of the profunda origin. I then feathered out to a reasonable endpoint in the superficial femoral artery. There was still some slight
intimal thickening/plaque on the lateral SFA wall, but no severe stenosis and good endpoint was noted. The origin of the profundus was carefully inspected and any fine debris removed with fine forceps. There was still some thickening in the
profundus well, but I did not feel it required any further endarterectomy. I now removed fine debris throughout the endarterectomy bed with fine forceps. I irrigated heparinized saline. I inspected my proximal and distal endpoints and they look
good. I therefore then used a bovine pericardial patch so long patch angioplasty with a running 5-0 Prolene suture. Prior to completing a time to my suture line I backbled the [place] arteries and then irrigated heparinized saline. I then
completed and tied down my suture line. Next I released my clamps. There is now excellent pulsatile flow in the common femoral/profunda/SFA. Doppler confirmed excellent signals. At this point I was satisfied. There is just diffuse oozing along
the suture line, but no major arterial points of bleeding. A few 6-0 interrupted Prolene [id number] type sutures were placed on the suture line and bleeding points. In addition topical hemostatic agents were used and protamine was given to
reverse the heparin. Meticulous hemostasis was thereby achieved. Once satisfied, I then irrigated again and confirmed hemostasis. We then closed in layers using 2-0 Vicryl running layer followed by 3-0 Vicryl deep dermal running layer followed by
skin clips. Dressings were applied. The patient tolerated procedure well. Upon completion he had an excellent 2+ palpable popliteal pulse in the left lower extremity as well as a good dopplerable PT signal.
[2025-02-05 18:26] LABS: Blood Urea Nitrogen 32 mg/dl (9-20); Calcium 8.7 mg/dl (8.4-10.2); Carbon Dioxide 22 mmol/L (22-30); Chloride 111 mmol/L (98-107); Estimated Creatinine Clearance 45 ml/min; Glucose 117 mg/dl (70-99); Potassium 4.2 mmol/L (3.5-5.1); Sodium 141 mmol/L (135-145); eGFR > 60.00
--- NOTE | 2025-02-05 18:47 | PTCARENOTE ---
Pt received to ICU bed 3362 from PACU. Pt AAOx1. restless. Weak doppler left PT pulse. Absent left DP. left groin site with small spots of shadow drainage on aquacell.
[2025-02-05] MEDS: NSS 1000 IV (18:51)
[2025-02-05] MEDS: COUMADIN PO (19:01)
[2025-02-05] MEDS: LIPITOR PO (19:02)
--- NOTE | 2025-02-05 19:30 | PTCARENOTE ---
Resumed care of pt AAOx1- forgetful to time and place. Pt confused, restless, continuously attempting to climb oob, asking to lay down, not understanding pt is in bed. Pt Can state name and name, but doesnt remember coming to hospital or have
any understanding as to why he is in hospital. Reality orientation provided. Pt attempting to pull at catheter and lines, B/L Hand mitts applied. HR in the 80's in Afib on the monitor. POX 98% on RA. Lungs dec at bases, occasional moist non
productive cough. Harp catheter in place for critical I/O draining clear yellow urine. Q1 Neurovascular checks maintained per MD order. Doppler pulses present. Discoloration of B/L LE noted. Right wrist int capped. Right AC int infusing
NSS@80ml/hr. Close monitoring maintained. Bed alarm in place.
[2025-02-06] VITALS (21 sets, daily range): BP systolic 111–169; BP diastolic 63–138
--- NOTE | 2025-02-06 00:09 | PTCARENOTE ---
Pt. confused/agitated. Removing PIV, uncooperative.
Soft B/L wrist rx placed.
Pulses intact via signal, site intact.
No further change in assessment.
--- NOTE | 2025-02-06 04:04 | PTCARENOTE ---
No change in assessment.
[2025-02-06] MEDS: DILAUDID 0.5 MG IV (04:07)
[2025-02-06] MEDS: NSS 1000 IV (04:08)
[2025-02-06 04:24] LABS: INR 0.92; PT 12.7 Sec (11.4-14.6)
[2025-02-06 04:29] LABS: APTT 21.7 Sec (23.4-35.0)
[2025-02-06 04:36] LABS: % Basophils 0.1 % (0-2); % Immature Granulocytes 0.3 % (0-0.5); % Lymphocytes 5.6 % (20.5-51.1); % Monocytes 4.6 % (1.7-9.3); % Neutrophils 89.4 % (42.2-75.2); Absolute Lymphocytes 0.5 10^3/uL (1.2-3.4); Absolute Monocytes 0.4 10^3/uL (0.1-0.6); Absolute Neutrophils 8.5 10^3/uL (1.4-6.5); Hemoglobin 15.5 g/dL (13.0-18.0); Mean Corp Hgb Conc. 33.7 g/dL (33.0-37.0); Mean Corpuscular Hgb 31.7 pg (27.0-31.0); Mean Corpuscular Volume 94.1 fL (80.0-94.0); Mean Platelet Volume 12.4 fL (7.4-10.4); Nucleated Red Blood Cells % 0 % (-); Platelet Count 203 10^3/uL (130-400); Red Blood Cell Count 4.89 10^6/uL (4.70-6.10); Red Cell Dist. Width 15.9 % (11.5-14.5); White Blood Cell Count 9.5 10^3/uL (4.8-10.8)
[2025-02-06 05:16] LABS: Blood Urea Nitrogen 33 mg/dl (9-20); Carbon Dioxide 24 mmol/L (22-30); Chloride 115 mmol/L (98-107); Estimated Creatinine Clearance 45 ml/min; Glucose 121 mg/dl (70-99); Magnesium 2.2 mg/dl (1.6-2.3); Potassium 4.8 mmol/L (3.5-5.1); Sodium 142 mmol/L (135-145); eGFR > 60.00
--- NOTE | 2025-02-06 07:10 | CON.INTV ---
Addendum entered and electronically signed by Oneyda Ceron MD 02/06/25 15:41:
Patient transferring out of ICU. Senior Insight Manager service will sign off, please call as needed.
Original Note:
Consultation
Consultation Request
Date/Time Consultation Requested: 02/05/2025
Date/Time Consultation Performed: 02/06/2025
Requesting Provider: Adria Mccallum
Performing Provider: Oneyda Ceron
Reason for Consultation: Limb ischemia
Medical History
-
Chief Complaint: Limb pain
History of Present Illness:
Patient is a 79-year-old gentleman who was admitted to the hospital on 02/04/2025. Patient was transferred here from [facility] for chest pain and RCA stenosis. Patient had PCI performed of the RCA with stent placement as well as a
pacemaker placement with a Angio-Seal closure of groin sites. Subsequently patient developed signs symptoms of limb ischemia and ultrasound did not show any pseudoaneurysm however showed evidence of intraluminal opacity which was partially
obstructing the common femoral artery. Vascular consult was subsequently requested and patient was subsequently taken to the OR. Patient had left femoral artery exploration and removal of retained Angio-Seal footplate and plug and also had left
iliofemoral endarterectomy performed. Postprocedure, patient was admitted to the ICU and director of media consultation was requested.
Past Medical History
Past Medical History: Reports Other
Additional Past Medical History:
Non-Hodgkin lymphoma
COPD
Tobacco abuse
Coronary artery disease
Paroxysmal atrial fibrillation
Chronic anticoagulation with Coumadin
Peripheral vascular disease
Severe anxiety
Hypercoagulable state
CKD baseline from 1.14-1.27
Aortic stenosis
Cardiomyopathy
Hyperlipidemia
Primary hypertension
Past Surgical History: Reports Other
Additional Past Surgical History:
Status post peripheral artery bypass
History of orthopedic surgery
History of splenectomy
History of excision of dermoid cyst
Social History
Tobacco: Smoker (Smoking for prolonged period of time)
Alcohol: None
Personal:
Living: With Family
Family History
Family History: Not pertinent
Allergies / Home Medications
Allergies reflects when Allergies were last updated in [facility].
Allergies / Home Medications
Allergies
Allergy/AdvReac Type Severity Reaction Status Date / Time
erythromycin base Allergy upset Verified 02/05/25 17:33
stomach
Fish Containing Products Allergy nausea and Verified 02/04/25 13:14
vomiting
iodine Allergy Unknown Verified 02/05/25 17:33
moxifloxacin Allergy Unknown Verified 02/05/25 17:33
shellfish derived Allergy Unknown Verified 02/05/25 17:33
Home Medications
�Medication �Instructions �Recorded �Confirmed �Last Taken �Type
albuterol sulfate 90 mcg/actuation 2 puff inhalation QID 02/04/25 02/04/25 Unknown History
aerosol inhaler (Ventolin HFA)
famotidine 20 mg tablet 20 mg PO DAILY 02/04/25 02/04/25 Unknown History
lorazepam 1 mg tablet 1 mg PO TID PRN anxiety 02/04/25 02/04/25 Unknown History
lubiprostone 8 mcg capsule 8 mcg PO BID 02/04/25 02/04/25 Unknown History
nitroglycerin 0.4 mg sublingual 0.4 mg sublingual Q5M PRN cp 02/04/25 02/04/25 Unknown History
tablet (Nitrostat)
warfarin 5 mg tablet 5 mg PO DAILY 02/04/25 02/04/25 Unknown History
Review of Systems
Vitals / Labs / Diagnostic Testing
Vital Signs
Temp Pulse Resp BP Pulse Ox
98.1 F 82 19 151/87 98
02/06/25 04:00 02/06/25 06:00 02/06/25 06:00 02/06/25 05:00 02/06/25 05:50
Lab Data
02/06/25 03:39
02/06/25 04:40
Laboratory Results
02/05/25 02/06/25
17:45 03:39
PT 15.1 H 12.7
INR 1.16 0.92
APTT 23.5 21.7 L
Microbiology
02/04/25 12:49 Nose MRSA Screen - Final
No Methicillin Resistant Staphylococcus aureus isolated.
Diagnostic Testing:
Physical Exam
-
HEENT: Normocephalic
Cardiovascular: S1/S2
Respiratory: Clear
GI: Soft
Neurology: Awake and Alert
Skin: Warm
General: Comfortable
Assessment
-
Patient with acute limb ischemia s/p:
1. Urgent left femoral artery cutdown/exploration.
2. Removal of retained Angio-Seal footplate and plug.
3. Extensive left iliofemoral endarterectomy (distal external iliac artery, common femoral artery, proximal superficial femoral artery and origin of profunda femoris artery) with bovine pericardial patch angioplasty.
by vascular surgery service, POD #1
02/06 overview: Patient currently not on any infusions. Saturating well on room air. Not requiring any pressors.
Continue observation following procedure
Follow neurovascular checks per protocol
ASA, Plavix. Metoprolol and Lipitor.
Follow BP monitoring and parameters as set by primary team
Cardiac history noted
Monitor on telemetry
Pain control per protocol
RASS goal 0
Diet advancement per protocol
Aspiration precautions
GI prophylaxis: on Famotidine
Creat at baseline, follow UO
Critical I/Os
Replete electrolytes as needed
No signs/symptoms suspicious for infectious etiology at this time
Will observe off antibiotics for now
Follow temperatures/CBC
Hb and platelets postoperatively stable. CBC, Electrolytes stable
DVT prophylaxis: Defer timing of chemical prophylaxis to vascular surgery service
Other medical diagnoses:
- CAD, s/p PCI 01/2025
- S/p Pacemaker placement
- Paroxysmal atrial fibrillation
- Chronic Kidney disease with mild MELISSA
- Heart failure with reduced ejection fraction, moderate aortic stenosis
- DM
- H/o Smoking and ?COPD. Reported 50+ pack year smoking history. Not on any inhaler therapy and does not carry a formal diagnosis of COPD or emphysema. Patient at this time does not feel he has any pulmonary symptoms and wants to hold off
additional investigations for possible underlying COPD/emphysema. If patient chooses to he can follow-up with pulmonary clinic as outpatient.
Critical Care time 65 mins -- The patient is admitted for acute critical illness for the treatment of vital organ failure and/or prevention of further life-threatening conditions. Total care includes time spent in review of history, physical exam,
medications, hemodynamic/ventilator parameters, laboratory data, imaging and discussion with house staff, pharmacy, respiratory therapy, acetylene torch burner, and nursing.
Data:
C and PPI 01/2025: 1. Successful placement of a temporary transvenous pacemaker in the right ventricle.
2. Successful CSI orbital atherectomy of the 90% ostial RCA lesion.
3. Successful PCI of the 90% ostial/proximal RCA lesion (Medtronic Fitzgerald [place] 3.0 x 30 ROBE, postdilated with a 3.0 NC balloon) with reduction in stenosis to 0%, maintaining MONTSE-3 flow.
[2025-02-06] MEDS: ProAIR HFA INHALER 2 PUFF INH ×4 (07:21→20:26)
--- NOTE | 2025-02-06 07:23 | PTCARENOTE ---
Received patient A&Ox2, forgetful, hard of hearing, on RA, Afib in the 80s, BP within range, RFA 20 infusing NS 80mL/hr, Left DP and PT pulses present on Doppler, Harp in place draining yellow urine, adequate UOP overnight.
[2025-02-06] MEDS: TOPROL XL 12.5 MG PO (07:48)
[2025-02-06] MEDS: PLAVIX 75 MG PO (07:49)
[2025-02-06] MEDS: LOW STRENGTH ASPIRIN 81 MG PO (07:49)
--- NOTE | 2025-02-06 08:12 | W.PN.CD ---
Today's Communication / Plan
-
Awaiting warfarin > 2
stop aspirin at that point
Impression / Plan
-
Impression/Plan: 79 y/o male with extensive past medical history admitted to [facility] with unstable angina, found to have critical, densely calcified ostial RCA disease, transferred for plaque modification with CTS backup.
#CAD/Unstable angina
-Acute.
-S/P successful CSI (orbital atherectomy x 4) and PCI of the ostial/proximal RCA (Medtronic Avtar Ovalo 3.0 x 30 ROBE, post dilated with a 3.0 NCB), 02/04/2025.
-Antithrombotic therapy with ASA/clopidogrel/warfarin until INR > 2, then d/c ASA.
L Femoral artery claudication 2/2 failed Angioseal
- s/p VS
- appreciate recommendations
#Moderate
-Chronic, stable.
#p AF
- warfarin INR > 2.0
- HR controlled
#Ischemic cardiomyopathy
-New diagnosis.
-Monitor response to PCI.
-Start metoprolol succinate 12.5 mg daily.
#PAD
-Chronic.
-Left AT pulse absent prior to procedure.
#HLD
-Chronic.
-Total cholesterol = 123, LDL = 63, HDL = 45, Triglycerides = 79.
-Goal LDL < 55.
-Started on atorvastatin 40 mg daily.
#Tobacco abuse
-Chronic, long standing.
-Cessation strongly recommended.
Subjective/Interval History:
Feeling well wants to leave
DATA:
Cardiac Catheterization/PCI, 02/04/2025:
CONCLUSIONS
1. Right dominant circulation with a densely calcified, 90% lesion in the ostium of the RCA extending into the proximal vessel, status post successful CSI orbital atherectomy and PCI (Medtronic Bowie Ovalo 3.0 x 30 ROBE, postdilated with a 3.0 NC
balloon throughout) with reduction in stenosis to 0%, maintaining MONTSE-3 flow.
Physical Exam
Vital Signs/Labs
Vital Signs
Temp Pulse Resp BP Pulse Ox
98.1 F 72 16 134/83 98
02/06/25 07:18 02/06/25 07:48 02/06/25 07:22 02/06/25 07:48 02/06/25 05:50
02/05/25 02/06/25 02/07/25
06:59 06:59 06:59
Actual Weight 128 lb 9.6 oz
02/06/25 03:39
02/06/25 04:40
PT 12.7 Sec (11.4-14.6) 02/06/25 03:39
INR 0.92 02/06/25 03:39
APTT 21.7 Sec (23.4-35.0) L 02/06/25 03:39
Magnesium 2.2 mg/dl (1.6-2.3) 02/06/25 04:40
Triglycerides 79 mg/dl (10-149) 02/05/25 03:38
LDL Cholesterol, Calc 63 mg/dl 02/05/25 03:38
VLDL Cholesterol, Calc 15 mg/dl (0-30) 02/05/25 03:38
HDL Cholesterol 45 mg/dl 02/05/25 03:38
02/04/25
13:35
Ihl-V-Feueiuhfrcd Pept 5680
Physical Exam
Constitutional: No acute distress and Comfortable
EENT: Anicteric
Cardiovascular: Rhythm/rate is irregular
Respiratory: Respiratory effort normal
GI: Soft
Neuro/Psych: Alert and Oriented
Other: Cath Site (bandage in place)
Data Reviewed
-
Date of Service: February 06, 2025
Medical Decision Making: Reviewed Test Results
EKG: Tracing Personally Visualized and interpreted (af)
Labs: Labs Reviewed by me
--- NOTE | 2025-02-06 11:01 | W.PN.HOSP.TC ---
Today's Communication/Plan
-
Continue with vascular checks
Await vascular surgery input
Continue with aspirin, Plavix
Restart Coumadin pending surgery clearance
Assessment / Plan
Assessment / Plan
General: No Apparent Distress and Appears Chronically Ill, hard of hearing
HEENT: NormoCephalic, Moist mucous membranes and Atraumatic
Respiratory: Clear
Cardiac: S1/S2, Regular Rhythm and Murmur; No Rub, Left groin site w/dressing noted. No overt hematoma.
GI: Soft, Non Tender, Non Distended and Normal Bowel Sounds; No Organomegaly
Rectal: Deferred by Provider
Musculoskeletal: No Clubbing, No Cyanosis and No Edema
Skin: No Rash
Neuro: Awake, Alert, Oriented, AO x 2-3, No Motor Deficits and Nonfocal/grossly intact
Psych: anxious
#Unstable angina
#CAD
Status post cardiac catheterization at [facility] with significant ostial right coronary artery stenosis
Currently chest pain-free
Status post cardiac catheterization with successful atherectomy and PCI of the RCA status post ROBE
Per cardiology plan for triple therapy until INR greater than 2 then stop aspirin and continue with Plavix and Coumadin
Continue with metoprolol and statin
Cardiology following
# Acute left limb ischemia
Failure to Angio-Seal on the left groin site
Ultrasound of the groin with showed no evidence of pseudoaneurysm in the left groin status post cardiac catheter. There is evidence of intraluminal opacity that at least partially obstruct flow in the common femoral artery. The flow distal to this
site is not monophasic
Status post margin 1 to the lower leg patient underwent left femoral artery cutdown exploration, removal of retained Angio-Seal footplate and plaque and Extensive left iliofemoral endarterectomy with bovine pericardial patch angioplasty.
Restart Coumadin per vascular
PT OT pending surgery clearance
Continue with vascular checks
Continue to monitor in ICU and transfer pending surgery clearance
# Mild encephalopathy unclear if due to delirium versus cognitive disorder
Continue to monitor closely.
#Chronic HFrEF with valvular disease
# Moderate aortic stenosis
Patient seems not to be on diuretics at home
Not on NOEMI inhibitor likely secondary to CKD
Not on goal-directed medical therapy
Continue with aspirin, statin and beta-danielito
Postcardiac catheterization consider starting GDMT
#MELISSA on CKD
Cr baseline from 1.14-1.27
Cr at baseline now
#Atrial fibrillation likely paroxysmal
#Chronic coagulopathy with Coumadin
Not on AV ermelinda danielito
Monitor on telemetry
INR subtherapeutic
Continue coumadin. With plan for OR per vascular with defer to surgery and cards
#Severe anxiety
Continue with Ativan
#Hyperlipidemia
Cont w/statin
#Chronic constipation
Continue with lubiprostone
#COPD
#Tobacco abuse daily basis
Refused nicotine patch
Continue with bronchodilators
No active wheezing
cxr negative for infiltrate
Complete cessation recommended
#Non-Hodgkin lymphoma
DVT prophylaxis SCDs for now
Full code
Anticipated Discharge: > 48 hours
Subjective/Interval History
-
Date of Service: February 06, 2025
eager to go home
Objective Data
-
Labs:
Laboratory Results
02/06/25 02/06/25
03:39 04:40
WBC 9.5
Hgb 15.5
Hct 46.0
Plt Count 203
PT 12.7
INR 0.92
APTT 21.7 L
Sodium Cancelled 142
Potassium Cancelled 4.8
Chloride Cancelled 115 H
Carbon Dioxide Cancelled 24
BUN Cancelled 33 H
Creatinine Cancelled 1.1
Glucose Cancelled 121 H
Calcium Cancelled 9.0
Vital Signs:
Vital Signs
Temp Pulse Resp BP Pulse Ox
98.1 F 79 20 134/80 96
02/06/25 07:18 02/06/25 08:00 02/06/25 08:00 02/06/25 08:00 02/06/25 08:00
I&O
02/05/25 02/06/25 02/07/25
06:59 06:59 06:59
Intake Total 960 / 1040 560 / 560
Output Total 175 / 175 460 / 610 225 / 225
Balance -175 / -175 500 / 430 335 / 335
--- NOTE | 2025-02-06 12:10 | PTCARENOTE ---
Reassessed the patient, eating lunch, Tiff at bedside and updated, consistent neurovascular checks on LLE.
[2025-02-06] MEDS: ATIVAN 1 MG PO (12:25)
[2025-02-06] MEDS: SENOKOT-S 1 TABLET PO (14:31)
--- NOTE | 2025-02-06 14:58 | W.PN.VS ---
Today's Communication / Plan
-
See plan below for today 02/06/2025.
Assessment/Plan
-
Postoperative day #1.
� Out of bed to chair.
� Discontinue Harp catheter.
� Remainder per cardiology.
� From a vascular perspective likely physical therapy tomorrow and out of bed ambulating tomorrow. And then likely can plan disposition from a vascular perspective if okay with cardiology. He may have small vessel disease, and that is why has
weaker flow on the left side (Good popliteal pulse more proximally however). However no symptoms currently.
-
Total Time Spent with Patient (in minutes): 15
Subjective Data
-
Date of Service: February 06, 2025
Patient is without complaints. Denies any pain in his left foot.
Objective Data
-
Vital Signs
Temp Pulse Resp BP Pulse Ox
98.1 F 78 24 152/138 98
02/06/25 11:19 02/06/25 12:00 02/06/25 12:00 02/06/25 12:00 02/06/25 11:00
Intake and Output
02/05/25 02/06/25 02/07/25
06:59 06:59 06:59
Intake Total 960 / 1040 980 / 980
Output Total 175 / 175 460 / 610 305 / 305
Balance -175 / -175 500 / 430 675 / 675
Intake:
Oral fluids 420 / 420
IV fluids (Total) 960 / 1040 560 / 560
Nss 1,000 ml @ 80 mls/hr IV . 960 / 1040 560 / 560
[id number] [facility] Rx#:[id number]
Output:
Urine, Harp 460 / 610 305 / 305
Urine, Voided 175 / 175
Other:
Number of approximated MODERATE 1
amounts of urine
Number of approximated LARGE 1
amounts of urine
Lab Results
02/06/25 03:39
02/06/25 04:40
Calcium 9.0 mg/dl (8.4-10.2) 02/06/25 04:40
Magnesium 2.2 mg/dl (1.6-2.3) 02/06/25 04:40
Total Bilirubin 1.0 mg/dl (0.2-1.3) 02/04/25 13:35
AST 33 U/L (17-59) 02/04/25 13:35
ALT 28 U/L (0-50) 02/04/25 13:35
Alkaline Phosphatase 111 U/L (38-126) 02/04/25 13:35
Total Protein 6.5 g/dl (6.3-8.2) 02/04/25 13:35
Albumin 4.3 g/dl (3.5-5.0) 02/04/25 13:35
Physical Exam
-
Afebrile.
Awake and alert.
Abdomen is soft, nondistended, nontender.
Left groin dressing is clean dry and intact. No hematoma. 2+ palpable femoral pulse.
2+ palpable popliteal pulse.
Left foot still slightly cool with weak but present Doppler signals. Cap refill reasonable, foot is pinker. Motor/sensory fully intact.
--- NOTE | 2025-02-06 16:05 | PTCARENOTE ---
Reassessed the patient, ambulated to the bathroom w/ 1 person assistance, had some body shakiness when walking, denied dizziness, on RA, Afib in 70s, BP within range, discontinued Harp earlier and patient voided just now, no changes from previous
neurovascular assessments. Patient will be transferred to Room 2115, Carrie Matthew updated at bedside.
[2025-02-06] MEDS: LIPITOR 40 MG PO (17:36)
--- NOTE | 2025-02-06 18:28 | PTCARENOTE ---
[facility]x 1630 pt transferred from ICU in wheelchair. Doppler pulses verified with SSDS MK 2 ADVANCED OPERATOR. Pt AA0x2- Very GULKANA and forgetful. Bed alarm placed for safety. in room. Afib on monitor. VS stable. No complaints at this time. Instructed to ring for
assistance.
[2025-02-07 03:47] VITALS: BP 133/88
[2025-02-07 05:44] LABS: % Basophils 0.1 % (0-2); % Eosinophils 1.4 % (0-6); % Immature Granulocytes 0.5 % (0-0.5); % Lymphocytes 13.3 % (20.5-51.1); % Neutrophils 75.7 % (42.2-75.2); Absolute Eosinophils 0.2 10^3/uL (0-0.7); Absolute Immature Granulocytes 0.1 10^3/uL (0-0.05); Absolute Lymphocytes 1.4 10^3/uL (1.2-3.4); Hematocrit 39.1 % (39.0-52.0); Hemoglobin 13.2 g/dL (13.0-18.0); Mean Corp Hgb Conc. 33.8 g/dL (33.0-37.0); Mean Corpuscular Volume 94.7 fL (80.0-94.0); Mean Platelet Volume 12.7 fL (7.4-10.4); Nucleated Red Blood Cells % 0 % (-); Platelet Count 175 10^3/uL (130-400); Red Blood Cell Count 4.13 10^6/uL (4.70-6.10); Red Cell Dist. Width 15.8 % (11.5-14.5); White Blood Cell Count 10.6 10^3/uL (4.8-10.8)
[2025-02-07 05:55] LABS: INR 1.06; PT 14.1 Sec (11.4-14.6)
[2025-02-07 06:19] LABS: Blood Urea Nitrogen 32 mg/dl (9-20); Calcium 8.6 mg/dl (8.4-10.2); Carbon Dioxide 22 mmol/L (22-30); Chloride 114 mmol/L (98-107); Estimated Creatinine Clearance 45 ml/min; Glucose 87 mg/dl (70-99); Potassium 4.2 mmol/L (3.5-5.1); Sodium 141 mmol/L (135-145); eGFR > 60.00
[2025-02-07 07:00] VITALS: BP 141/100
[2025-02-07] MEDS: ProAIR HFA INHALER 2 PUFF INH ×3 (08:16→18:49)
[2025-02-07] MEDS: PLAVIX 75 MG PO (08:45)
[2025-02-07] MEDS: TOPROL XL 12.5 MG PO (08:45)
[2025-02-07] MEDS: PEPCID 20 MG PO (08:46)
[2025-02-07] MEDS: LOW STRENGTH ASPIRIN 81 MG PO (08:46)
--- NOTE | 2025-02-07 09:58 | W.PN.VS ---
Today's Communication / Plan
-
See plan below for today 02/07/2025.
Assessment/Plan
-
Postoperative day #2.
� Out of bed, PT/OT. Ambulate as tolerated. Okay to resume anticoagulation from vascular perspective. Pending physical therapy evaluation, discharge planning. Will defer to cardiology in terms of if ready for discharge from an anticoagulation
perspective. But if cleared by physical therapy, no vascular contraindication to discharge.
-
Total Time Spent with Patient (in minutes): 15
Subjective Data
-
Date of Service: February 07, 2025
Seen and examined. He is without complaints. No pain in the left groin. No pain in the left foot. He wants to go home.
Objective Data
-
Vital Signs
Temp Pulse Resp BP Pulse Ox
98.1 F 78 16 141/100 95
02/07/25 07:00 02/07/25 08:20 02/07/25 08:20 02/07/25 07:00 02/07/25 08:20
Intake and Output
02/06/25 02/07/25 02/08/25
06:59 06:59 06:59
Intake Total 960 / 1040 1960 / 1960
Output Total 460 / 610 655 / 655 200 / 200
Balance 500 / 430 1305 / 1305 -200 / -200
Intake:
Oral fluids 1400 / 1400
IV fluids (Total) 960 / 1040 560 / 560
Nss 1,000 ml @ 80 mls/hr IV . 960 / 1040 560 / 560
[id number] Rx#:[id number]
Output:
Urine, Harp 460 / 610 305 / 305
Urine, Voided 350 / 350 200 / 200
Other:
Number of approximated SMALL 1
amounts of urine
Number of approximated LARGE 1
amounts of urine
Lab Results
02/07/25 04:37
02/07/25 04:37
Calcium 8.6 mg/dl (8.4-10.2) 02/07/25 04:37
Magnesium 2.2 mg/dl (1.6-2.3) 02/06/25 04:40
Total Bilirubin 1.0 mg/dl (0.2-1.3) 02/04/25 13:35
AST 33 U/L (17-59) 02/04/25 13:35
ALT 28 U/L (0-50) 02/04/25 13:35
Alkaline Phosphatase 111 U/L (38-126) 02/04/25 13:35
Total Protein 6.5 g/dl (6.3-8.2) 02/04/25 13:35
Albumin 4.3 g/dl (3.5-5.0) 02/04/25 13:35
Physical Exam
-
Afebrile.
Awake and alert.
Left groin incision is clean dry and intact. Dressing reapplied by me.
2+ palpable left popliteal pulse.
Left foot is warm.
[2025-02-07 11:00] VITALS: BP 131/84
[2025-02-07] MEDS: ProAIR HFA INHALER INH (11:50)
--- NOTE | 2025-02-07 12:44 | W.PN.HOSP.TC ---
Today's Communication/Plan
-
Continue with aspirin/Plavix
Restart Coumadin
Await cardiology input regards for anticoagulation antiplatelet regimen on discharge
PT evaluation
Harp catheter removed. Voiding without difficulty
Assessment / Plan
Assessment / Plan
General: No Apparent Distress and Appears Chronically Ill, hard of hearing
HEENT: NormoCephalic, Moist mucous membranes and Atraumatic
Respiratory: Clear
Cardiac: S1/S2, Regular Rhythm and Murmur; No Rub, Left groin site w/dressing noted. No overt hematoma.
GI: Soft, Non Tender, Non Distended and Normal Bowel Sounds; No Organomegaly
Rectal: Deferred by Provider
Musculoskeletal: No Clubbing, No Cyanosis and No Edema
Skin: No Rash
Neuro: Awake, Alert, Oriented, AO x 2-3, No Motor Deficits and Nonfocal/grossly intact
Psych: anxious
#Unstable angina
#CAD
Status post cardiac catheterization at [facility] with significant ostial right coronary artery stenosis
Currently chest pain-free
Status post cardiac catheterization with successful atherectomy and PCI of the RCA status post ROBE
Per cardiology plan for triple therapy until INR greater than 2 then stop aspirin and continue with Plavix and Coumadin
Continue with metoprolol and statin
Cardiology following
# Acute left limb ischemia
Failure to Angio-Seal on the left groin site
Ultrasound of the groin with showed no evidence of pseudoaneurysm in the left groin status post cardiac catheter. There is evidence of intraluminal opacity that at least partially obstruct flow in the common femoral artery. The flow distal to this
site is not monophasic
Status post margin 1 to the lower leg patient underwent left femoral artery cutdown exploration, removal of retained Angio-Seal footplate and plaque and Extensive left iliofemoral endarterectomy with bovine pericardial patch angioplasty.
Per vascular surgery okay to restart patient on Coumadin. INR subtherapeutic at 1.06
PT ordered
Continue with vascular checks
Out of bed in therapy.
# Mild encephalopathy unclear if due to delirium versus cognitive disorder
Continue to monitor closely.
#Chronic HFrEF with valvular disease
# Moderate aortic stenosis
Patient seems not to be on diuretics at home
Not on NOEMI inhibitor likely secondary to CKD
Not on goal-directed medical therapy
Continue with aspirin, statin. Metoprolol was ordered this admission.
Postcardiac catheterization consider starting GDMT
#MELISSA on CKD
Cr baseline from 1.14-1.27
Cr at baseline now
#Atrial fibrillation likely paroxysmal
#Chronic coagulopathy with Coumadin
Not on AV ermelinda danielito
Monitor on telemetry
INR subtherapeutic
Per vascular surgery okay to restart patient on Coumadin. INR subtherapeutic at 1.06
6 mg of Coumadin tonight.
Await anticoagulation plan further on discharge per cardiology
#Severe anxiety
Continue with Ativan
#Hyperlipidemia
Cont w/statin
#Chronic constipation
Continue with lubiprostone
#COPD
#Tobacco abuse daily basis
Refused nicotine patch
Continue with bronchodilators
No active wheezing
cxr negative for infiltrate
Complete cessation recommended
#Non-Hodgkin lymphoma
DVT prophylaxis Coumadin
Full code
Anticipated Discharge: 24 - 48 hours
Subjective/Interval History
-
Date of Service: February 07, 2025
Harp catheter removed
Objective Data
-
Labs:
Laboratory Results
02/07/25 02/07/25
04:37 04:38
WBC 10.6
Hgb 13.2
Hct 39.1
Plt Count 175
PT 14.1
INR 1.06
Sodium 141
Potassium 4.2
Chloride 114 H
Carbon Dioxide 22
BUN 32 H
Creatinine 1.1
Glucose 87
Calcium 8.6
Vital Signs:
Vital Signs
Temp Pulse Resp BP Pulse Ox
97.7 F 82 18 131/84 98
02/07/25 11:00 02/07/25 11:00 02/07/25 11:00 02/07/25 11:00 02/07/25 11:00
I&O
02/06/25 02/07/25 02/08/25
06:59 06:59 06:59
Intake Total 960 / 1040 1959 / 1959
Output Total 460 / 610 655 / 655 300 / 300
Balance 500 / 430 1305 / 1305 -300 / -300
--- NOTE | 2025-02-07 13:06 | W.PN.CD ---
Today's Communication / Plan
-
Resume warfarin today
cont meds
Likely d/c tomorrow.
Impression / Plan
-
Impression/Plan: 79 y/o male with extensive past medical history admitted to [facility] with unstable angina, found to have critical, densely calcified ostial RCA disease, transferred for plaque modification with CTS backup.
#CAD/Unstable angina
-Acute.
-S/P successful CSI (orbital atherectomy x 4) and PCI of the ostial/proximal RCA (Medtronic [place] 3.0 x 30 ROBE, post dilated with a 3.0 NCB), 02/04/2025.
-Antithrombotic therapy with ASA/clopidogrel/warfarin until INR > 2, then d/c ASA.
L Femoral artery claudication 2/2 failed Angioseal
- s/p VS
- appreciate recommendations
#Moderate
-Chronic, stable.
#p AF
- warfarin INR > 2.0
- HR controlled
#Ischemic cardiomyopathy
-New diagnosis.
-Monitor response to PCI.
-Start metoprolol succinate 12.5 mg daily.
#PAD
-Chronic.
-Left AT pulse absent prior to procedure.
#HLD
-Chronic.
-Total cholesterol = 123, LDL = 63, HDL = 45, Triglycerides = 79.
-Goal LDL < 55.
-Started on atorvastatin 40 mg daily.
#Tobacco abuse
-Chronic, long standing.
-Cessation strongly recommended.
Subjective/Interval History:
Feeling well wants to leave
DATA:
Cardiac Catheterization/PCI, 02/04/2025:
CONCLUSIONS
1. Right dominant circulation with a densely calcified, 90% lesion in the ostium of the RCA extending into the proximal vessel, status post successful CSI orbital atherectomy and PCI (Medtronic [place]tar [place] 3.0 x 30 ROBE, postdilated with a 3.0 NC
balloon throughout) with reduction in stenosis to 0%, maintaining MONTSE-3 flow.
Physical Exam
Vital Signs/Labs
Vital Signs
Temp Pulse Resp BP Pulse Ox
97.7 F 82 18 131/84 98
02/07/25 11:00 02/07/25 11:00 02/07/25 11:00 02/07/25 11:00 02/07/25 11:00
02/06/25 02/07/25 02/08/25
06:59 06:59 06:59
Actual Weight 128 lb 9.6 oz
02/07/25 04:37
02/07/25 04:37
PT 14.1 Sec (11.4-14.6) 02/07/25 04:38
INR 1.06 02/07/25 04:38
APTT 21.7 Sec (23.4-35.0) L 02/06/25 03:39
Magnesium 2.2 mg/dl (1.6-2.3) 02/06/25 04:40
Triglycerides 79 mg/dl (10-149) 02/05/25 03:38
LDL Cholesterol, Calc 63 mg/dl 02/05/25 03:38
VLDL Cholesterol, Calc 15 mg/dl (0-30) 02/05/25 03:38
HDL Cholesterol 45 mg/dl 02/05/25 03:38
02/04/25
13:35
Tzm-[id number]-Kpgmllgokyj Pept 5680
Physical Exam
Constitutional: No acute distress and Comfortable
EENT: Anicteric
Cardiovascular: Pedal edema is absent and Rhythm/rate is irregular
Respiratory: Respiratory effort normal and Lungs clear to auscul.
GI: Soft
Neuro/Psych: Alert and Oriented
Data Reviewed
-
Date of Service: February 07, 2025
Medical Decision Making: Reviewed Test Results
EKG: Tracing Personally Visualized and interpreted (af)
Labs: Labs Reviewed by me
[2025-02-07 15:00] VITALS: BP 128/81
[2025-02-07 15:48] VITALS: BP 129/86; PULSE 85; O2SAT 95
[2025-02-07] MEDS: LIPITOR 40 MG PO (17:18)
[2025-02-07] MEDS: COUMADIN 6 MG PO (17:18)
[2025-02-07] MEDS: ATIVAN 1 MG PO (21:16)
[2025-02-07] MEDS: MELATONIN 5 MG PO (23:02)
[2025-02-07 23:24] VITALS: BP 124/71
[2025-02-08 06:00] VITALS: BMI 17.3
[2025-02-08 06:18] LABS: % Basophils 0.5 % (0-2); % Eosinophils 4.1 % (0-6); % Immature Granulocytes 0.2 % (0-0.5); % Lymphocytes 14.3 % (20.5-51.1); % Monocytes 11.1 % (1.7-9.3); % Neutrophils 69.8 % (42.2-75.2); Absolute Eosinophils 0.4 10^3/uL (0-0.7); Absolute Lymphocytes 1.2 10^3/uL (1.2-3.4); Absolute Monocytes 0.9 10^3/uL (0.1-0.6); Absolute Neutrophils 5.9 10^3/uL (1.4-6.5); Hematocrit 38.2 % (39.0-52.0); Hemoglobin 12.9 g/dL (13.0-18.0); Mean Corp Hgb Conc. 33.8 g/dL (33.0-37.0); Mean Corpuscular Hgb 31.5 pg (27.0-31.0); Mean Corpuscular Volume 93.2 fL (80.0-94.0); Mean Platelet Volume 12.6 fL (7.4-10.4); Nucleated Red Blood Cells % 0 % (-); Platelet Count 163 10^3/uL (130-400); Red Cell Dist. Width 15.4 % (11.5-14.5); White Blood Cell Count 8.4 10^3/uL (4.8-10.8)
[2025-02-08 06:22] LABS: INR 1.11; PT 14.6 Sec (11.4-14.6)
[2025-02-08 06:51] LABS: Blood Urea Nitrogen 20 mg/dl (9-20); Calcium 8.4 mg/dl (8.4-10.2); Carbon Dioxide 20 mmol/L (22-30); Chloride 112 mmol/L (98-107); Estimated Creatinine Clearance 55 ml/min; Glucose 95 mg/dl (70-99); Potassium 3.8 mmol/L (3.5-5.1); Sodium 138 mmol/L (135-145); eGFR > 60.00
--- NOTE | 2025-02-08 07:31 | W.PN.CD ---
Today's Communication / Plan
-
Continue all current medications.
Continue warfarin load. Repeat 5 mg today. Goal INR 2.5.
When INR > 2, discontinue aspirin.
Stable for outpatient follow up.
Impression / Plan
-
Impression/Plan: 79 y/o male with extensive past medical history admitted to [facility] with unstable angina, found to have critical, densely calcified ostial RCA disease, transferred for plaque modification with CTS backup.
#CAD/Unstable angina
-Acute.
-S/P successful CSI (orbital atherectomy x 4) and PCI of the ostial/proximal RCA (Medtronic [place] 3.0 x 30 ROBE, post dilated with a 3.0 NCB), 02/04/2025.
-Antithrombotic therapy with ASA/clopidogrel/warfarin until INR > 2, then d/c ASA.
#L Femoral artery claudication
-Acute, 2/2 failed Angioseal.
-S/P removal of retained Angio-seal footplate/plug.
#Moderate
-Chronic, stable.
#PAF
-Chronic, currently in NSR.
-Rate control with metoprolol succinate 12.5 mg daily.
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
-Therapeutic anti-coagulation with warfarin. Goal INR = 2.5 (2-3). INR today = 1.11.
-Received warfarin 5 mg on 02/04/2025, then held for two days (perioperative), then 6 mg on 02/07/2025.
#Ischemic cardiomyopathy
-New diagnosis. LVEF 45%.
-Monitor response to PCI.
-GDMT:
-Diuretics: None.
-Beta danielito: Metoprolol succinate 12.5 mg daily.
-ACEI/ARB/ARNi: Not currently indicated.
-MRA: Not currently indicated.
-SGLT2i: Deferred at patient request.
-ICD: Not currently indicated.
#PAD
-Chronic.
-Left AT pulse absent prior to procedure.
#HLD
-Chronic.
-Total cholesterol = 123, LDL = 63, HDL = 45, Triglycerides = 79.
-Goal LDL < 55.
-Tolerating atorvastatin 40 mg daily.
#Tobacco abuse
-Chronic, long standing.
-Cessation strongly recommended.
Subjective/Interval History:
No acute events.
No subjective complaints.
DATA:
Cardiac Catheterization/PCI, 02/04/2025:
CONCLUSIONS
1. Right dominant circulation with a densely calcified, 90% lesion in the ostium of the RCA extending into the proximal vessel, status post successful CSI orbital atherectomy and PCI (Medtronic [place] 3.0 x 30 ROBE, postdilated with a 3.0 NC
balloon throughout) with reduction in stenosis to 0%, maintaining MONTSE-3 flow.
Vascular Surgery, 02/05/2025:
Procedure:
1. Urgent left femoral artery cutdown/exploration.
2. Removal of retained Angio-Seal footplate and plug.
3. Extensive left iliofemoral endarterectomy (distal external iliac artery, common femoral artery, proximal superficial femoral artery and origin of profunda femoris artery) with bovine pericardial patch angioplasty.
Physical Exam
Vital Signs/Labs
Vital Signs
Temp Pulse Resp BP Pulse Ox
36.4 C 93 16 124/71 94
02/07/25 23:24 02/07/25 23:24 02/07/25 23:24 02/07/25 23:24 02/07/25 23:24
02/06/25 02/07/25 02/08/25
11:59 11:59 11:59
Actual Weight 58.332 kg 57.776 kg
02/08/25 05:39
02/08/25 05:39
PT 14.6 Sec (11.4-14.6) 02/08/25 05:39
INR 1.11 02/08/25 05:39
APTT 21.7 Sec (23.4-35.0) L 02/06/25 03:39
Magnesium 2.2 mg/dl (1.6-2.3) 02/06/25 04:40
Triglycerides 79 mg/dl (10-149) 02/05/25 03:38
LDL Cholesterol, Calc 63 mg/dl 02/05/25 03:38
VLDL Cholesterol, Calc 15 mg/dl (0-30) 02/05/25 03:38
HDL Cholesterol 45 mg/dl 02/05/25 03:38
02/04/25
13:35
Tag-P-Oeuehnqpzds Pept 5680
Physical Exam
Constitutional: No acute distress and Comfortable
EENT: Anicteric and Moist mucous membranes
Cardiovascular: Rhythm & rate is regular, Pedal edema is absent, JVD pressure is normal, S1S2 is normal and Murmur/rub/gallop absent
Respiratory: Respiratory effort normal, Lungs clear to auscul., Wheeze Absent, Crackles Absent and Rhonchi Absent
GI: Soft, Distention absent, Flat, Non tender and Normal bowel sounds
Neuro/Psych: AO x 3
Other: Cath Site (Left femoral access site is under dressing, managed by vascular surgery.)
Data Reviewed
-
Date of Service: February 08, 2025
Medical Decision Making: Reviewed Test Results, Independent Historian Assessment and Test Interpretation
EKG: Tracing Personally Visualized and interpreted and Report Reviewed by me
Echo: Report Reviewed by me
X-Ray/CT/US/MRI/NUC/PET: Image Personally Visualized and interpreted and Report Reviewed by me
Medical Tests (PFT, Pathology etc): Image Personally Visualized and interpreted and Report Reviewed by me
Labs: Labs Reviewed by me
Old Records: Reviewed
[2025-02-08 07:35] VITALS: BP 151/88
[2025-02-08 07:45] LABS: ACT-LR - POC > 397 Seconds (116-155)
[2025-02-08] MEDS: ProAIR HFA INHALER 2 PUFF INH ×3 (08:15→15:21)
[2025-02-08] MEDS: PLAVIX 75 MG PO (08:17)
[2025-02-08] MEDS: TOPROL XL 12.5 MG PO (08:17)
[2025-02-08] MEDS: LOW STRENGTH ASPIRIN 81 MG PO (08:18)
--- NOTE | 2025-02-08 09:12 | PTCARENOTE ---
pt aaox2-3. forgetful at times. states no pain and wants to go home. left groin dressing intact with some old drainage. left leg warm + pulses. irr heart rhythm noted.
--- NOTE | 2025-02-08 09:16 | W.PN.HOSP.TC ---
Addendum entered and electronically signed by Keyonna Perdomo MD 02/08/25 17:06:
Addendum
Patient was evaluated by cardiology and vascular doctors. Okay to be discharged. Instruction given. Discussed with director of casework department.
Total discharge time spent to see the patient, examine the patient, review data and lab result, discuss discharge plan with patient, nursing staff around 65 minutes
Original Note:
Today's Communication/Plan
-
dc planning
Assessment / Plan
Assessment / Plan
Physical exam:
General: No Apparent Distress and Appears Chronically Ill, hard of hearing
HEENT: NormoCephalic, Moist mucous membranes and Atraumatic
Respiratory: Clear
Cardiac: S1/S2, Regular Rhythm and Murmur; No Rub, Left groin site w/dressing noted. No hematoma.
GI: Soft, Non Tender, Non Distended and Normal Bowel Sounds; No Organomegaly
Rectal: no bleeding
Musculoskeletal: No Clubbing, No Cyanosis and No Edema
Skin: No Rash
Neuro: Awake, Alert, Oriented, AO x to self and surroundings
Psych: calm
#Unstable angina
#CAD
Status post cardiac catheterization at [facility] with significant ostial right coronary artery stenosis
Currently chest pain-free
Status post cardiac catheterization with successful atherectomy and PCI of the RCA status post ROBE
Per cardiology plan for triple therapy until INR greater than 2 then stop aspirin and continue with Plavix and Coumadin
Continue with metoprolol and statin
Coumadin and Plavix, aspirin
Cardiology following
# Acute left limb ischemia
Failure to Angio-Seal on the left groin site
Ultrasound of the groin with showed no evidence of pseudoaneurysm in the left groin status post cardiac catheter. There is evidence of intraluminal opacity that at least partially obstruct flow in the common femoral artery. The flow distal to this
site is not monophasic
Status post margin 1 to the lower leg patient underwent left femoral artery cutdown exploration, removal of retained Angio-Seal footplate and plaque and Extensive left iliofemoral endarterectomy with bovine pericardial patch angioplasty.
Per vascular surgery okay to restart patient on Coumadin. INR subtherapeutic
PT ordered
Continue with vascular checks
Out of bed in therapy.
# Toxic metabolic encephalopathy
seems approaching baseline
He follows commands appropriately
#Chronic HFrEF with valvular disease
# Moderate aortic stenosis
Patient seems not to be on diuretics at home
Not on NOEMI inhibitor likely secondary to CKD
Not on goal-directed medical therapy
Continue with aspirin, statin. Metoprolol was ordered this admission.
Consider GDMT in OP setting
#MELISSA on CKD
Cr baseline from 1.14-1.27
Cr at baseline now
#Atrial fibrillation likely paroxysmal
#Chronic coagulopathy with Coumadin
Not on AV ermelinda danielito
Monitor on telemetry
INR subtherapeutic
Per vascular surgery okay to restart patient on Coumadin. INR subtherapeutic at 1.06
6 mg of Coumadin tonight.
Await anticoagulation plan further on discharge per cardiology
#Severe anxiety with benzo dependency
Continue with Ativan
#Hyperlipidemia
Cont w/statin
# Underweight
#Chronic constipation
Continue with lubiprostone
#COPD
#Tobacco abuse daily basis
Refused nicotine patch
Continue with bronchodilators
No active wheezing
cxr negative for infiltrate
Complete cessation recommended
#Non-Hodgkin lymphoma
DVT prophylaxis Coumadin
Full code
Total time spent to see the patient, examine the patient, review data and lab result, discuss discharge / treatment plan with patient, nursing staff around 55 minutes
Anticipated Discharge: Today
Subjective/Interval History
-
Date of Service: February 08, 2025
No chest pain
No sob
No fevers
Objective Data
-
Labs:
Laboratory Results
02/08/25
05:39
WBC 8.4
Hgb 12.9 L
Hct 38.2 L
Plt Count 163
PT 14.6
INR 1.11
Sodium 138
Potassium 3.8
Chloride 112 H
Carbon Dioxide 20 L
BUN 20
Creatinine 0.9
Glucose 95
Calcium 8.4
Vital Signs:
Vital Signs
Temp Pulse Resp BP Pulse Ox
98.3 F 81 18 151/88 96
02/08/25 07:35 02/08/25 08:17 02/08/25 07:35 02/08/25 08:17 02/08/25 07:35
I&O
02/07/25 02/08/25 02/09/25
06:59 06:59 06:59
Intake Total 1959 / 1959
Output Total 655 / 655 600 / 600
Balance 1305 / 1305 -600 / -600
--- NOTE | 2025-02-08 10:21 | CM ---
Addendum entered by Swapna Rush 02/08/25 14:46:
Patient accepted to [facility]. please call report to [phone]/
Addendum entered by Swapna Rush 02/08/25 13:11:
Patient seen with patient and following therapy now asking for SNF placement. indicated that she would like referral to [facility] or [facility]. CM will send referrals and await response.
Plan; SNF
Original Note:
Patient seen at bedside in [address] [place] [address]. Patient stated he wants to go home. Per chart review plan is for possible discharge tomorrow per cardiology. Patient recommended for home VN vs SNF per PT 02/07/25. Patient may benefit from additional assessment to
clarify discharge need. CM will touch base with about PT recommendations. CM will continue to follow for discharge planning needs.
Plan; SNF vs home with Vn
[2025-02-08 15:30] VITALS: BP 136/99
--- NOTE | 2025-02-08 16:59 | W.DCSUMMARY ---
Discharge Summary
Discharge Data
Date of Admission: 02/04/25
Date of Discharge: 02/08/25
-
Pending Results: No
Hospital Course
79 years old male who was transferred to from [facility] for treatment of unstable angina. Patient had cardiac catheterization on 02/04/[address] Yeung with successful stenting of of the ostial/proximal right coronary artery. Patient had
severe peripheral arterial disease and was noticed to develop left foot pain consistent with ischemic pain after failed Angio-Seal closure of the left common femoral artery at completion of coronary catheterization. Duplex ultrasound showed
occlusive disease with likelihood of Angio-Seal plaque/footplate. Patient was evaluated by vascular surgery. Patient underwent urgent left femoral artery cutdown/exploration, removal of retained angio-she will footplate and plug, extensive left
iliofemoral endarterectomy (distal external iliac artery, common femoral artery, proximal superficial femoral artery and origin of profunda femoris artery) with bovine pericardial patch angioplasty by Dr Mccallum on 02/05/25. Coumadin therapy was
resumed. He was also maintained on dual antiplatelet therapy with aspirin and Plavix. The goal to continue with warfarin and Plavix after INR becomes therapeutic. Patient remained hemodynamically stable. Follow-up evaluation of left foot showed
improvement. Patient was evaluated by physical therapy and recommended alf facility placement. Patient was discharged in a stable condition. Patient was counseled to avoid tobacco use.
Discharge Plan
-
Patient Disposition: Home (Routine Discharge)
Discharge Diagnosis/Procedures: CAD/Unstable angina:
S/P successful CSI (orbital atherectomy x 4) and PCI of the ostial/proximal RCA (Medtronic [place]tar [place] 3.0 x 30 ROBE, post dilated with a 3.0 NCB), 02/04/2025.
- Antithrombotic therapy with ASA/clopidogrel/warfarin until INR > 2, then d/c ASA.
- Acute limb ischemia left lower extremity. s/p Urgent left femoral artery cutdown/exploration.
2. Removal of retained Angio-Seal footplate and plug.
3. Extensive left iliofemoral endarterectomy (distal external iliac artery, common femoral artery, proximal superficial femoral artery and origin of profunda femoris artery) with bovine pericardial patch angioplasty.
Diet: Low Cholesterol
Activity: No strenuous activity
Driving Restrictions: No driving for 24 hours
Bathing Restrictions: OK to Shower
Other Services: Cardiac Rehab
Stand Alone Forms: DC Instructions- Cath/EP Lab, Vascular Surg Discharge Instr
Referrals:
Trevon Worley MD [Active, Cardiology] - in two to four weeks
Ovidio Talbert MD [Family Provider, Physical Medicine and Rehab]
Deepika Soriano CRNP [Specified Professional Personl, Vascular Surgery] - 03/02/25 2:30 pm
Referral Note: Vascular surgery office follow-up
Additional Discharge Medication Instructions: You will be on Aspirin, Plavix and warfarin, then stop Aspirin when INR >2.
Prescriptions:
New
atorvastatin 40 mg Tablet
40 mg PO QPM Qty: 30 0RF
warfarin [Jantoven] 3 mg Tablet
6 mg PO QPM Qty: 30 0RF
acetaminophen 325 mg Tablet
650 mg PO Q4HPRN PRN (Reason: mild pain/ANN/temp> 100.4F) Qty: 10 0RF
polyethylene glycol 3350 17 gram Powder In Packet
17 g PO DAILYPRN PRN (Reason: constipation) Qty: 10 0RF
sennosides-docusate sodium 8.6-50 mg Tablet
1 tab PO BIDPRN PRN (Reason: constipation) Qty: 20 0RF
clopidogrel 75 mg Tablet
75 mg PO DAILY Qty: 30 0RF
aspirin 81 mg Tablet,Chewable
81 mg PO DAILY Qty: 10 0RF
metoprolol succinate 25 mg Tablet Extended Release 24 Hr
12.5 mg PO DAILY Qty: 30 0RF
melatonin 5 mg Tablet
5 mg PO HS Qty: 10 0RF
Continued
famotidine 20 mg Tablet
20 mg PO DAILY
nitroglycerin [Nitrostat] 0.4 mg Tablet, Sublingual
0.4 mg SUBLINGUAL Q5M PRN (Reason: cp)
lorazepam 1 mg Tablet
1 mg PO TID PRN (Reason: anxiety)
albuterol sulfate [Ventolin HFA] 90 mcg/actuation Hfa Aerosol Inhaler
2 puff INHALATION QID
lubiprostone 8 mcg Capsule
8 mcg PO BID
Discontinued
warfarin 5 mg Tablet
5 mg PO DAILY
Discharge Orders:
Discharge Patient (As Directed); Ordered 02/08/25
Ordered By: Keyonna Perdomo
Care Plan Goals
Care Plan Goals:
Problem: Readiness for enhanced knowledge related to diagnosis and treatment plan
Goal: Understand your diagnosis and treatment plan needs, including medications if applicable.
Instructions: Know your diagnosis, underlying causes and treatment plan options, including medications if applicable. Consult with your health care team to learn about your diagnosis and treatment plan, including medications if applicable.
Discharge Date and Time
Discharge Date/Time: 02/08/25 16:45
Print Language: MAORI
== END 2025-02-08 16:45 | DRG 270 ==
LOC: 2 SOUTH 11:48
PROVIDERS: Nurse Practitioner Acute Care; ADMITTING PHYSICIAN Hospitalist; ATTENDING PHYSICIAN Internal Medicine; FAMILY PHYSICIAN Internal Medicine; OTHER PHYSICIAN Internal Medicine; OTHER PHYSICIAN Internal Medicine Cardiovascular Disease; OTHER PHYSICIAN Surgery Vascular Surgery
PROC: 027034Z Dilation of Coronary Artery, One Artery with Drug-eluting Intraluminal Device, Percutaneous Approach (ICD-10-PCS; 2025-02-04)
PROC: 4A023N7 Measurement of Cardiac Sampling and Pressure, Left Heart, Percutaneous Approach (ICD-10-PCS; 2025-02-04)
PROC: B2101ZZ Fluoroscopy of Single Coronary Artery using Low Osmolar Contrast (ICD-10-PCS; 2025-02-04)
PROC: 02C03Z7 Extirpation of Matter from Coronary Artery, One Artery, Orbital Atherectomy Technique, Percutaneous Approach (ICD-10-PCS; 2025-02-04)
PROC: 5A1223Z Performance of Cardiac Pacing, Continuous (ICD-10-PCS; 2025-02-04)
PROC: 04UJ0KZ Supplement Left External Iliac Artery with Nonautologous Tissue Substitute, Open Approach (ICD-10-PCS; 2025-02-05)
PROC: 04PY0YZ Removal of Other Device from Lower Artery, Open Approach (ICD-10-PCS; 2025-02-05)
PROC: 04CJ0ZZ Extirpation of Matter from Left External Iliac Artery, Open Approach (ICD-10-PCS; 2025-02-05)
DX: I25.110 Atherosclerotic heart disease of native coronary artery with unstable angina pectoris (principal); G92.8 Other toxic encephalopathy; C85.90 Non-Hodgkin lymphoma, unspecified, unspecified site; D68.59 Other primary thrombophilia; I13.0 Hypertensive heart and chronic kidney disease with heart failure and stage 1 through stage 4 chronic kidney disease, or unspecified chronic kidney disease; I50.22 Chronic systolic (congestive) heart failure; T82.898A Other specified complication of vascular prosthetic devices, implants and grafts, initial encounter; I74.3 Embolism and thrombosis of arteries of the lower extremities; N17.9 Acute kidney failure, unspecified; F13.20 Sedative, hypnotic or anxiolytic dependence, uncomplicated; Z68.1 Body mass index [BMI] 19.9 or less, adult; I35.0 Nonrheumatic aortic (valve) stenosis; J44.9 Chronic obstructive pulmonary disease, unspecified; I99.8 Other disorder of circulatory system; Y71.3 Surgical instruments, materials and cardiovascular devices (including sutures) associated with adverse incidents; I48.0 Paroxysmal atrial fibrillation; I70.222 Atherosclerosis of native arteries of extremities with rest pain, left leg; F41.9 Anxiety disorder, unspecified; N18.9 Chronic kidney disease, unspecified; I25.5 Ischemic cardiomyopathy; E78.00 Pure hypercholesterolemia, unspecified; K59.09 Other constipation; R63.6 Underweight; H91.90 Unspecified hearing loss, unspecified ear; F17.200 Nicotine dependence, unspecified, uncomplicated; Z90.81 Acquired absence of spleen; Z79.01 Long term (current) use of anticoagulants
CPT/HCPCS: 88304; 88311; 35355; 80048; 80053; 80061; 83735; 83880; 85025; 85027; 85347; 85610; 85730; 86850; 86900; 86901; 87070; 93005; 93926; 94640; 97116; 97163; 99406; C1724; C1725; C1760; C1769; C1874; C1887; C1894; C9602; Q9967